=== PATIENT | male | born 1945 | race Caucasian/White ===

== ENCOUNTER 2017-12-10 10:41 | Inpatient (IN) | payer MEDICARE, OTHER ==
[2017-12-10 12:19] LABS: BASO # 0.1 K/uL (0.0-0.2); BASO % 0.9 % (0.0-2.0); EOS # 0.1 K/uL (0.0-0.7); EOS % 0.7 % (0.0-4.0); HEMOGLOBIN 8.7 g/dL (12.0-18.0); LYMPH # 1.7 K/uL (1.0-4.3); LYMPH % 22.5 % (20.0-40.0); MEAN CELL VOLUME 89.2 fL (80.0-94.0); MEAN CORPUSCULAR HGB CONC 33.6 g/dL (33.0-37.0); MEAN PLATELET VOLUME 7.6 fL (7.2-11.7); MONO # 0.8 K/uL (0.0-0.8); MONO % 10.8 % (0.0-10.0); NEUT % 65.1 % (50.0-75.0); RBC 2.9 Mil/uL (4.40-5.90); RED CELL DISTRIBUTION WIDTH 14.1 % (11.5-14.5); WHITE BLOOD COUNT 7.7 K/uL (4.8-10.8)
[2017-12-10 12:28] LABS: INR 1.2; PROTHROMBIN TIME 12.9 SECONDS (9.7-12.2)
[2017-12-10 12:33] LABS: ALB/GLOB RATIO 1.1 (1.0-2.1); ALBUMIN 3.3 g/dL (3.5-5.0); ALT/SGPT 30 U/L (21-72); AST/SGOT 24 U/L (17-59); BLOOD UREA NITROGEN 18 mg/dL (9-20); CALCIUM 7.9 mg/dl (8.6-10.4); GFR AFRICAN-AMERICAN > 60; GFR NON-AFRICAN AMERICAN > 60; LIPASE 53 U/L (23-300)
[2017-12-10 12:40] LABS: SQUAMOUS EPITHIAL 1 /hpf (0-5); URINE BILIRUBIN NEGATIVE (NEGATIVE); URINE BLOOD NEGATIVE (NEGATIVE); URINE CLARITY Clear (Clear); URINE COLOR Yellow (YELLOW); URINE GLUCOSE (UA) NORMAL (Normal); URINE LEUKOCYTE ESTERASE NEG Leu/uL (Negative); URINE PROTEIN NEGATIVE (NEGATIVE); URINE UROBILINOGEN NORMAL mg/dL (0.2-1.0)
--- NOTE | 2017-12-10 13:00 | C.PDOC ---
History Of Present Illness 72 year old male presents to the ED for evaluation of painless rectal bleeding that started 2 days ago. Patient reports he had "spicy" [place] food Thursday night and think its the reason for his rectal bleeding. Patient reports noticing bloody stools since Thursday and has had similar bleeding in the past. Patient is also c/o generalized weakness and lightheadedness. Patient denies fever, chills, nausea, vomit, abdominal pain, back pain, CP, SOB. Chief Complaint (Nursing): GI Problem History Per: Patient History/Exam Limitations: no limitations Onset/Duration Of Symptoms: Days Current Symptoms Are (Timing): Still Present Associated Symptoms: Rectal Bleeding, Lightheadedness Modifying Factors: None Recent travel outside of the [place]: No Additional History Per: Patient Past Medical History Reviewed: Historical Data, Nursing Documentation, Vital Signs Vital Signs: Last Vital Signs Temp 97.3 F L 12/13/17 15:37 Pulse 84 12/13/17 16:00 Resp 18 12/13/17 15:37 BP 111/70 12/13/17 15:37 Pulse Ox 99 12/13/17 19:01 - Medical History PMH: No Chronic Diseases, HTN Denies: Chronic Kidney Disease Surgical History: No Surg Hx Family History: States: Unknown Family Hx - Social History Hx Alcohol Use: No Hx Substance Use: No - Immunization History Hx Tetanus Toxoid Vaccination: No Hx Influenza Vaccination: Yes Hx Pneumococcal Vaccination: Yes Review Of Systems Constitutional: Negative for: Fever, Chills Cardiovascular: Negative for: Chest Pain, Palpitations Respiratory: Negative for: Cough, Shortness of Breath Gastrointestinal: Positive for: Diarrhea, Melena. Negative for: Vomiting Genitourinary: Negative for: Dysuria Musculoskeletal: Negative for: Back Pain Skin: Negative for: Rash Neurological: Negative for: Weakness, Numbness Physical Exam - Physical Exam Appears: Non-toxic, No Acute Distress Skin: Normal Color, Warm, Dry Head: Atraumatic, Normacephalic Eye(s): bilateral: Normal Inspection, Conjunctiva Pale Nose: No Discharge Oral Mucosa: Moist Neck: Normal ROM, Supple Chest: Symmetrical Cardiovascular: Rhythm Regular, No Murmur Respiratory: Normal Breath Sounds, No Rales, No Rhonchi, No Wheezing Gastrointestinal/Abdominal: Bowel Sounds (active), Soft, No Tenderness, No Guarding, No Rebound Rectal: Maroon Stool, Other (Strongly guac positive ) Extremity: Normal ROM, No Tenderness, No Swelling Neurological/Psych: Oriented x3, Normal Motor, Normal Sensation Gait: Steady ED Course And Treatment - Laboratory Results Result Diagrams: 12/13/17 08:26 18 08:26 ECG: Interpreted By Me ECG Interpretation: No Acute Changes O2 Sat by Pulse Oximetry: 99 (On RA) Pulse Ox Interpretation: Normal Medical Decision Making Medical Decision Making: Impression: painless GI bleed Plan: * EKG * Labs * CXR * UA Pt to be admitted for GI bleed Disposition - Disposition Disposition: HOSPITALIZED Disposition Time: 19:03 Condition: FAIR - Clinical Impression Clinical Impression: Gastrointestinal hemorrhage - Scribe Statement The provider has reviewed the documentation as recorded by the Scribe Gabriel Gordon All medical record entries made by the Scribe were at my direction and personally dictated by me. I have reviewed the chart and agree that the record accurately reflects my personal performance of the history, physical exam, medical decision making, and the department course for this patient. I have also personally directed, reviewed, and agree with the discharge instructions and disposition.
--- NOTE | 2017-12-10 14:55 | RAD ---
PROCEDURE: CHEST RADIOGRAPH, 1 VIEW HISTORY: Abdominal pain COMPARISON: 01/20/2012 FINDINGS: LUNGS: Clear. PLEURA: No pneumothorax or pleural fluid seen. CARDIOVASCULAR: No radiographic findings to suggest acute or significant cardiovascular disease. OSSEOUS STRUCTURES: No significant abnormalities. VISUALIZED UPPER ABDOMEN: Normal. OTHER FINDINGS: None. IMPRESSION: No active disease. No acute/significant interval changes.
--- NOTE | 2017-12-10 16:36 | CP.PCM.CON ---
<Karla Galicia - Last Filed: 12/10/17 16:56> History of Present Illness - History of Present Illness History of Present Illness: PGY4 Initial GI Consult Mor Sierra is a 72M w/ hx of BPH who presents with BRBPR and melena. He states that his rectal bleeding started 4 days ago. He notes that the bleeding was abrupt and is not associated with abd pain. He denies any post prandial pain. Denies any hematemsis, coffee-ground emesis, nausea, or vomiting. Pt denies any previous episode of rectal bleeding. He had a colonoscopy performed by Dr. Su on 11/2015 which revealed diverticulosis and grade 2 internal hemorrhoids. He denies any current hemorrhoid pain or discomfort. Denies any constipation or straining. He his bloody BM with melena was today in the AM. He denies any NSAID or anticoagulation use. His hgb upon arrival was 8.7. His baseline hgb is ~ 14. PMHx: BPH, diverticulosis PSHx: none Social Hx: denies smoking, ETOH, or illicit drug use Family Hx: denies any hx of colon ca, or GI malignancies ROS: 12-point ROS conducted, neg other than above Past Patient History - Past Medical History & Family History Past Medical History?: Yes - Past Social History Smoking Status: Never Smoked - CARDIAC Hx Hypertension: Yes - PULMONARY Hx Respiratory Disorders: No - NEUROLOGICAL Hx Neurological Disorder: No - HEENT Hx HEENT Problems: Yes Hx Cataracts: Yes (BIOL) - RENAL Hx Chronic Kidney Disease: No - ENDOCRINE/METABOLIC Hx Endocrine Disorders: No - HEMATOLOGICAL/ONCOLOGICAL Hx Blood Disorders: Yes (VITAMIN D DEFICIENCY) - INTEGUMENTARY Hx Dermatological Problems: No - MUSCULOSKELETAL/RHEUMATOLOGICAL Hx Musculoskeletal Disorders: No - GASTROINTESTINAL Hx Gastrointestinal Disorders: Yes Other/Comment: RECTAL BLEEDING - GENITOURINARY/GYNECOLOGICAL Hx Genitourinary Disorders: Yes Hx Prostate Problems: Yes (BPH) - PSYCHIATRIC Hx Substance Use: No - SURGICAL HISTORY Hx Surgeries: Yes Hx Cataract Extraction: Yes (BIOL) Hx Herniorrhaphy: Yes (LEFT INGUINAL) Other/Comment: "TOE SX" - ANESTHESIA Hx Anesthesia: Yes Hx Anesthesia Reactions: No Hx Malignant Hyperthermia: No Meds Allergies/Adverse Reactions: Allergies Allergy/AdvReac Type Severity Reaction Status Date / Time No Known Allergies Allergy Verified 12/10/17 10:48 Physical Exam - Constitutional Appears: Well, No Acute Distress - Head Exam Head Exam: ATRAUMATIC, NORMOCEPHALIC - Eye Exam Eye Exam: Normal appearance - ENT Exam ENT Exam: Mucous Membranes Moist, Normal Exam - Neck Exam Neck exam: Positive for: Normal Inspection - Respiratory Exam Respiratory Exam: Clear to Auscultation Bilateral, NORMAL BREATHING PATTERN. absent: Rales, Rhonchi, Wheezes, Respiratory Distress - Cardiovascular Exam Cardiovascular Exam: REGULAR RHYTHM, +S1, +S2 - GI/Abdominal Exam GI & Abdominal Exam: Normal Bowel Sounds, Soft. absent: Distended, Firm, Guarding, Rebound, Rigid, Tenderness - Rectal Exam Rectal Exam: Black Stool, Bloody Stool - Extremities Exam Extremities exam: Negative for: joint swelling, pedal edema - Neurological Exam Neurological exam: Alert, Oriented x3 - Psychiatric Exam Psychiatric exam: Normal Affect, Normal Mood - Skin Skin Exam: Dry, Intact, Normal Color, Warm Results - Vital Signs Recent Vital Signs: Last Vital Signs Temp 98.0 F 12/10/17 14:37 Pulse 82 12/10/17 14:37 Resp 20 12/10/17 14:37 BP 103/61 12/10/17 14:37 Pulse Ox 99 12/10/17 14:37 - Labs Result Diagrams: 12/10/17 12:15 12/10/17 12:15 Labs: Laboratory Results - last 24 hr 12/10/17 12/10/17 12/10/17 12:15 12:15 12:15 WBC 7.7 RBC 2.90 L Hgb 8.7 L Hct 25.9 L MCV 89.2 MCH 30.0 MCHC 33.6 RDW 14.1 Plt Count 194 MPV 7.6 Neut % (Auto) 65.1 Lymph % (Auto) 22.5 [place] % (Auto) 10.8 H Eos % (Auto) 0.7 Baso % (Auto) 0.9 Neut # (Auto) 5.0 Lymph # (Auto) 1.7 [place] # (Auto) 0.8 Eos # (Auto) 0.1 Baso # (Auto) 0.1 PT 12.9 H INR 1.2 APTT 29 Sodium 140 Potassium 3.9 Chloride 107 Carbon Dioxide 23 Anion Gap 14 BUN 18 Creatinine 0.8 Est GFR ( Amer) > 60 Est GFR (Non-Af Amer) > 60 Random Glucose 107 Calcium 7.9 L Total Bilirubin 0.4 AST 24 ALT 30 Alkaline Phosphatase 58 Troponin I < 0.0120 Total Protein 6.5 Albumin 3.3 L Globulin 3.2 Albumin/Globulin Ratio 1.1 Lipase 53 Urine Color Urine Clarity Urine pH Ur Specific [place] Urine Protein Urine Glucose (UA) Urine Ketones Urine Blood Urine Nitrate Urine Bilirubin Urine Urobilinogen Ur Leukocyte Esterase Urine WBC (Auto) Urine RBC (Auto) Ur Squamous Epith Cells Stool Occult Blood 12/10/17 12/10/17 12:19 12:31 WBC RBC Hgb Hct MCV MCH MCHC RDW Plt Count MPV Neut % (Auto) Lymph % (Auto) [place] % (Auto) Eos % (Auto) Baso % (Auto) Neut # (Auto) Lymph # (Auto) [place] # (Auto) Eos # (Auto) Baso # (Auto) PT INR APTT Sodium Potassium Chloride Carbon Dioxide Anion Gap BUN Creatinine Est GFR ( Amer) Est GFR (Non-Af Amer) Random Glucose Calcium Total Bilirubin AST ALT Alkaline Phosphatase Troponin I Total Protein Albumin Globulin Albumin/Globulin Ratio Lipase Urine Color Yellow Urine Clarity Clear Urine pH 5.0 Ur Specific [place] 1.023 Urine Protein Negative Urine Glucose (UA) Normal Urine Ketones Negative Urine Blood Negative Urine Nitrate Negative Urine Bilirubin Negative Urine Urobilinogen Normal Ur Leukocyte Esterase Neg Urine WBC (Auto) 1 Urine RBC (Auto) < 1 Ur Squamous Epith Cells 1 Stool Occult Blood Positive H Assessment & Plan - Assessment and Plan (Free Text) Assessment: Mor Sierra is a 72M w/ hx of BPH and diverticulosis who presents to the ER with rectal bleeding Rectal bleeding, etiology likely diverticular vs PUD vs AVM Anemia hx of diverticulosis Plan: -etiology is likely diverticular which is often self limiting -continue to monitor -transfuse if hgb <8 or symptomatic -will give 1 unit PRBC now -maintain 2 large bore IV access -start Protonix 40mg IV BID -start clears -if pt continues to bleed, make NPO and will reeval -spoke with daughter and she is aware of plan will D/W Dr. Su <River Su Y - Last Filed: 12/10/17 17:02> Meds - Medications Medications: Current Medications Doxazosin Mesylate (Cardura) 4 mg PO DAILY NIKO Sodium Chloride (Sodium Chloride 0.9%) 1,000 mls @ 70 mls/hr IV .[id number] NIKO Stop: 12/11/17 21:19 Pantoprazole Sodium (Protonix Inj) 40 mg IVP BID NIKO Zolpidem Tartrate (Ambien) 5 mg PO HS PRN PRN Reason: Insomnia Results - Vital Signs Recent Vital Signs: Last Vital Signs Temp 98.3 F 12/10/17 16:47 Pulse 80 12/10/17 16:47 Resp 20 12/10/17 16:47 BP 107/69 12/10/17 16:47 Pulse Ox 96 12/10/17 16:47 - Labs Result Diagrams: 12/10/17 12:15 12/10/17 12:15 Labs: Laboratory Results - last 24 hr 12/10/17 12/10/17 12/10/17 12:15 12:15 12:15 WBC 7.7 RBC 2.90 L Hgb 8.7 L Hct 25.9 L MCV 89.2 MCH 30.0 MCHC 33.6 RDW 14.1 Plt Count 194 MPV 7.6 Neut % (Auto) 65.1 Lymph % (Auto) 22.5 [place] % (Auto) 10.8 H Eos % (Auto) 0.7 Baso % (Auto) 0.9 Neut # (Auto) 5.0 Lymph # (Auto) 1.7 [place] # (Auto) 0.8 Eos # (Auto) 0.1 Baso # (Auto) 0.1 PT 12.9 H INR 1.2 APTT 29 Sodium 140 Potassium 3.9 Chloride 107 Carbon Dioxide 23 Anion Gap 14 BUN 18 Creatinine 0.8 Est GFR ( Amer) > 60 Est GFR (Non-Af Amer) > 60 Random Glucose 107 Calcium 7.9 L Total Bilirubin 0.4 AST 24 ALT 30 Alkaline Phosphatase 58 Troponin I < 0.0120 Total Protein 6.5 Albumin 3.3 L Globulin 3.2 Albumin/Globulin Ratio 1.1 Lipase 53 Urine Color Urine Clarity Urine pH Ur Specific [place] Urine Protein Urine Glucose (UA) Urine Ketones Urine Blood Urine Nitrate Urine Bilirubin Urine Urobilinogen Ur Leukocyte Esterase Urine WBC (Auto) Urine RBC (Auto) Ur Squamous Epith Cells Stool Occult Blood 12/10/17 12/10/17 12:19 12:31 WBC RBC Hgb Hct MCV MCH MCHC RDW Plt Count MPV Neut % (Auto) Lymph % (Auto) [place] % (Auto) Eos % (Auto) Baso % (Auto) Neut # (Auto) Lymph # (Auto) [place] # (Auto) Eos # (Auto) Baso # (Auto) PT INR APTT Sodium Potassium Chloride Carbon Dioxide Anion Gap BUN Creatinine Est GFR ( Amer) Est GFR (Non-Af Amer) Random Glucose Calcium Total Bilirubin AST ALT Alkaline Phosphatase Troponin I Total Protein Albumin Globulin Albumin/Globulin Ratio Lipase Urine Color Yellow Urine Clarity Clear Urine pH 5.0 Ur Specific [place] 1.023 Urine Protein Negative Urine Glucose (UA) Normal Urine Ketones Negative Urine Blood Negative Urine Nitrate Negative Urine Bilirubin Negative Urine Urobilinogen Normal Ur Leukocyte Esterase Neg Urine WBC (Auto) 1 Urine RBC (Auto) < 1 Ur Squamous Epith Cells 1 Stool Occult Blood Positive H Attending/Attestation - Attestation I have personally seen and examined this patient.: Yes I have fully participated in the care of the patient.: Yes I have reviewed all pertinent clinical information: Yes Notes (Text): 12/10/17 16:57 I have seen and examined patient with GI fellow. Agree with above documentation with the following additions. In brief, this is a 72 year old male with history of BPH who presents to hospital with complaint of rectal bleeding. He describes sudden onset bleeding beginning 4 days ago with bowel movements. Prior to this he was in usual state of health. He has been having approximately 2 episodes of hematochezia per day without any associated abdominal pain, nausea, vomiting, fever/chills, weight loss. He denies unusual food consumption or medication changes. He had a colonoscopy in November 2015 which showed gunter diverticulosis and internal hemorrhoids. Review of vitals from today are normal. Additional physical examination: Abdomen: no palpable hepato/splenomegaly BPH Rectal bleeding - rectal exam performed today shows mixed dark and fresh red blood with normal sphincter tone and no palpable lesions - Liquid diet as tolerated - Suggest 1 U PRBC transfusion and continued monitoring of H/H - Obtain iron studies - Bleeding source likely diverticular given clinical scenario with prior endoscopic findings, will continue to monitor patient clinical course, currently no endoscopic evaluation required at this time, patient hemodynamically stable. He tentatively has an outpatient office appointment with me on thursday for follow up. Will continue to monitor clinical course.
--- NOTE | 2017-12-10 16:50 | CP.PCM.HP ---
Present on Admission - Present on Admission Any Indicators Present on Admission: No Past Patient History - Past Medical History & Family History Past Medical History?: Yes - Past Social History Smoking Status: Never Smoked - CARDIAC Hx Hypertension: Yes - PULMONARY Hx Respiratory Disorders: No - NEUROLOGICAL Hx Neurological Disorder: No - HEENT Hx HEENT Problems: Yes Hx Cataracts: Yes (BIOL) - RENAL Hx Chronic Kidney Disease: No - ENDOCRINE/METABOLIC Hx Endocrine Disorders: No - HEMATOLOGICAL/ONCOLOGICAL Hx Blood Disorders: Yes (VITAMIN D DEFICIENCY) - INTEGUMENTARY Hx Dermatological Problems: No - MUSCULOSKELETAL/RHEUMATOLOGICAL Hx Musculoskeletal Disorders: No - GASTROINTESTINAL Hx Gastrointestinal Disorders: Yes Other/Comment: RECTAL BLEEDING - GENITOURINARY/GYNECOLOGICAL Hx Genitourinary Disorders: Yes Hx Prostate Problems: Yes (BPH) - PSYCHIATRIC Hx Substance Use: No - SURGICAL HISTORY Hx Surgeries: Yes Hx Cataract Extraction: Yes (BIOL) Hx Herniorrhaphy: Yes (LEFT INGUINAL) Other/Comment: "TOE SX" - ANESTHESIA Hx Anesthesia: Yes Hx Anesthesia Reactions: No Hx Malignant Hyperthermia: No Meds Allergies/Adverse Reactions: Allergies Allergy/AdvReac Type Severity Reaction Status Date / Time No Known Allergies Allergy Verified 12/10/17 10:48 Physical Exam - Constitutional Appears: Well - Head Exam Head Exam: ATRAUMATIC, NORMAL INSPECTION, NORMOCEPHALIC - Eye Exam Eye Exam: EOMI, Normal appearance, PERRL Pupil Exam: NORMAL ACCOMODATION, PERRL - ENT Exam ENT Exam: Mucous Membranes Moist, Normal Exam - Neck Exam Neck exam: Positive for: Normal Inspection - Respiratory Exam Respiratory Exam: Decreased Breath Sounds - Cardiovascular Exam Cardiovascular Exam: REGULAR RHYTHM, +S1, +S2 - GI/Abdominal Exam GI & Abdominal Exam: Diminished Bowel Sounds, Soft - Rectal Exam Rectal Exam: Deferred Results - Vital Signs Recent Vital Signs: Last Vital Signs Temp 98.0 F 12/10/17 14:37 Pulse 82 12/10/17 14:37 Resp 20 12/10/17 14:37 BP 103/61 12/10/17 14:37 Pulse Ox 99 12/10/17 14:37 - Labs Result Diagrams: 12/10/17 12:15 12/10/17 12:15 Labs: Laboratory Results - last 24 hr 12/10/17 12/10/17 12/10/17 12:15 12:15 12:15 WBC 7.7 RBC 2.90 L Hgb 8.7 L Hct 25.9 L MCV 89.2 MCH 30.0 MCHC 33.6 RDW 14.1 Plt Count 194 MPV 7.6 Neut % (Auto) 65.1 Lymph % (Auto) 22.5 [place] % (Auto) 10.8 H Eos % (Auto) 0.7 Baso % (Auto) 0.9 Neut # (Auto) 5.0 Lymph # (Auto) 1.7 [place] # (Auto) 0.8 Eos # (Auto) 0.1 Baso # (Auto) 0.1 PT 12.9 H INR 1.2 APTT 29 Sodium 140 Potassium 3.9 Chloride 107 Carbon Dioxide 23 Anion Gap 14 BUN 18 Creatinine 0.8 Est GFR ( Amer) > 60 Est GFR (Non-Af Amer) > 60 Random Glucose 107 Calcium 7.9 L Total Bilirubin 0.4 AST 24 ALT 30 Alkaline Phosphatase 58 Troponin I < 0.0120 Total Protein 6.5 Albumin 3.3 L Globulin 3.2 Albumin/Globulin Ratio 1.1 Lipase 53 Urine Color Urine Clarity Urine pH Ur Specific [place] Urine Protein Urine Glucose (UA) Urine Ketones Urine Blood Urine Nitrate Urine Bilirubin Urine Urobilinogen Ur Leukocyte Esterase Urine WBC (Auto) Urine RBC (Auto) Ur Squamous Epith Cells Stool Occult Blood 12/10/17 12/10/17 12:19 12:31 WBC RBC Hgb Hct MCV MCH MCHC RDW Plt Count MPV Neut % (Auto) Lymph % (Auto) [place] % (Auto) Eos % (Auto) Baso % (Auto) Neut # (Auto) Lymph # (Auto) [place] # (Auto) Eos # (Auto) Baso # (Auto) PT INR APTT Sodium Potassium Chloride Carbon Dioxide Anion Gap BUN Creatinine Est GFR ( Amer) Est GFR (Non-Af Amer) Random Glucose Calcium Total Bilirubin AST ALT Alkaline Phosphatase Troponin I Total Protein Albumin Globulin Albumin/Globulin Ratio Lipase Urine Color Yellow Urine Clarity Clear Urine pH 5.0 Ur Specific [place] 1.023 Urine Protein Negative Urine Glucose (UA) Normal Urine Ketones Negative Urine Blood Negative Urine Nitrate Negative Urine Bilirubin Negative Urine Urobilinogen Normal Ur Leukocyte Esterase Neg Urine WBC (Auto) 1 Urine RBC (Auto) < 1 Ur Squamous Epith Cells 1 Stool Occult Blood Positive H Assessment & Plan - Assessment and Plan (Free Text) Plan: Patient with a history of BPH admitted with BRBPR or melena Status post GI Vital signs stable with a blood pressure of 103/61 Hemoglobin is 8.7/25.9 hematocrit CMP is okay CBC CMP tomorrow morning May be diverticular bleeding transfuse if hemoglobin goes below 8 Status post status post Protonix Venodyne boots We will hold Lovenox at this time Medication as ordered Continue IV Cipro
[2017-12-10] MEDS: Sodium Chloride 0.9% 1,000 ML IV SCH (17:26)
[2017-12-10 19:59] LABS: IRON 10 ug/dL (49-181)
[2017-12-10 20:12] LABS: % IRON SATURATION 4 (20-55); TOTAL IRON BINDING CAPACITY 276 ug/dL (250-450)
[2017-12-10] MEDS ORDERED: Pneumococcal 23-Valent Vaccine IM ONE (22:31)
[2017-12-10] MEDS: Ciprofloxacin 200mg/100ml D5W 100 ML IVPB SCH (23:00)
[2017-12-11] MEDS: Ciprofloxacin 200mg/100ml D5W 100 ML IVPB SCH ×3 (02:00→22:13)
[2017-12-11 07:55] LABS: EOS # 0.1 K/uL (0.0-0.7); HEMOGLOBIN 9.1 g/dL (12.0-18.0); MONO # 0.6 K/uL (0.0-0.8); NEUT # 3.9 K/uL (1.8-7.0); WHITE BLOOD COUNT 6.4 K/uL (4.8-10.8)
--- NOTE | 2017-12-11 08:00 | CP.PCM.PN ---
<Jessica Brown - Last Filed: 12/11/17 11:25> Subjective - Date & Time of Evaluation Date of Evaluation: 12/11/17 Time of Evaluation: 07:00 - Subjective Subjective: Gastroenterology Follow Up Note Patient was seen and examined at beside. Patient reports he has been having 3 bloody bowel movements since Thursday. He reports overnight he had 2 bloody bowel movements, the last one looked "black". Admits to fatigue and weakness. Denied any shortness of breath, chest pain, abdominal pain, n/v/d/c. He did not eat last night due to the fear of having a bowel movement. Objective - Vital Signs/Intake and Output Vital Signs (last 24 hours): Temp Pulse Resp BP Pulse Ox 98.3 F 85 18 100/64 96 12/11/17 07:40 12/11/17 07:40 12/11/17 07:40 12/11/17 07:40 12/11/17 07:40 Intake and Output: 12/11/17 12/11/17 06:59 18:59 Intake Total 1140 Output Total 300 Balance 840 - Medications Medications: Current Medications Doxazosin Mesylate (Cardura) 4 mg PO DAILY NIKO Ferrous Sulfate (Feosol) 325 mg PO TID NIKO Sodium Chloride (Sodium Chloride 0.9%) 1,000 mls @ 70 mls/hr IV .[id number] [facility] Stop: 12/11/17 21:19 Last Admin: 12/10/17 17:26 Dose: 70 mls/hr Ciprofloxacin (Cipro 200mg/100ml D5w) 100 mls @ 67 mls/hr IVPB Q12H NIKO PRN Reason: Protocol Last Admin: 12/11/17 02:00 Dose: 67 mls/hr Pantoprazole Sodium (Protonix Inj) 40 mg IVP BID NIKO Last Admin: 12/10/17 17:26 Dose: 40 mg Zolpidem Tartrate (Ambien) 5 mg PO HS PRN PRN Reason: Insomnia Last Admin: 12/10/17 23:06 Dose: 5 mg - Labs Labs: 12/10/17 12:15 12/10/17 12:15 PT 12.9 SECONDS (9.7-12.2) H 12/10/17 12:15 INR 1.2 12/10/17 12:15 APTT 29 SECONDS (21-34) 12/10/17 12:15 - Constitutional Appears: No Acute Distress - Head Exam Head Exam: NORMAL INSPECTION, NORMOCEPHALIC - Eye Exam Eye Exam: EOMI, Normal appearance, PERRL Pupil Exam: NORMAL ACCOMODATION - ENT Exam ENT Exam: Mucous Membranes Moist, Normal Exam - Respiratory Exam Respiratory Exam: Clear to Ausculation Bilateral, NORMAL BREATHING PATTERN - Cardiovascular Exam Cardiovascular Exam: REGULAR RHYTHM - GI/Abdominal Exam GI & Abdominal Exam: Soft, Normal Bowel Sounds. absent: Distended, Tenderness, Organomegaly - Rectal Exam Rectal Exam: Deferred - Extremities Exam Extremities Exam: Normal Inspection. absent: Pedal Edema, Tenderness - Neurological Exam Neurological Exam: Alert, Awake, Oriented x3 - Psychiatric Exam Psychiatric exam: Normal Affect, Normal Mood - Skin Skin Exam: Dry, Intact, Normal Color, Warm. absent: Pallor Assessment and Plan - Assessment and Plan (Free Text) Assessment: 72 year old Male with medical history of BPH and diverticulosis who presents to the ER with rectal bleeding. He had a colonoscopy in November 2015 which showed gunter diverticulosis and internal hemorrhoids. BPH Iron Deficiency Anemia Rectal bleeding Plan: - Patient reports 2 bloody, tarry bowel movements overnight - S/P 1 unit PRBC, hemoglobin did not respond appropriately - Transfuse as necessary, will need Iron supplementation - Patient is for upper endoscopy today. Pending clinical evaluation over the weekend, possible colonoscopy 12/14/17. - Will continue to monitor clinical course. Jessica Palacio Dr., DO, PGY-1 <Patsy Palacios - Last Filed: 12/11/17 22:04> Objective - Vital Signs/Intake and Output Vital Signs (last 24 hours): Temp Pulse Resp BP Pulse Ox 97.9 F 86 20 99/63 L 96 12/11/17 15:56 12/11/17 15:56 12/11/17 15:56 12/11/17 15:56 12/11/17 15:56 Intake and Output: 12/11/17 12/12/17 18:59 06:59 Intake Total 500 Balance 500 - Medications Medications: Current Medications Doxazosin Mesylate (Cardura) 4 mg PO DAILY [facility] Last Admin: 12/11/17 09:39 Dose: 4 mg Ferrous Sulfate (Feosol) 325 mg PO TID [facility] Last Admin: 12/11/17 09:39 Dose: 325 mg Ciprofloxacin (Cipro 200mg/100ml D5w) 100 mls @ 67 mls/hr IVPB Q12H NIKO PRN Reason: Protocol Last Admin: 12/11/17 11:45 Dose: 67 mls/hr Pantoprazole Sodium (Protonix Inj) 40 mg IVP BID [facility] Last Admin: 12/11/17 09:40 Dose: 40 mg Zolpidem Tartrate (Ambien) 5 mg PO HS PRN PRN Reason: Insomnia Last Admin: 12/10/17 23:06 Dose: 5 mg - Labs Labs: 12/11/17 19:35 12/10/17 12:15 PT 12.9 SECONDS (9.7-12.2) H 12/10/17 12:15 INR 1.2 12/10/17 12:15 APTT 29 SECONDS (21-34) 12/10/17 12:15 Attending/Attestation - Attestation I have personally seen and examined this patient.: Yes I have fully participated in the care of the patient.: Yes I have reviewed all pertinent clinical information, including history, physical exam and plan: Yes Notes (Text): 12/11/17 22:03 Patient seen with GI fellow. 72 year old Male with medical history of BPH and diverticulosis who presents to the ER with rectal bleeding. He had a colonoscopy in November 2015 which showed gunter diverticulosis and internal hemorrhoids. Patient reports 2 bloody, tarry bowel movements overnight with no response to blood transfusions. Urgent EGD today was unremarkable and H pylori biopsies taken. Will continue PPI and start clear liquid diet. Possible colonoscopy 12/14/17 if continues to bleed. Will continue to monitor clinical course.
[2017-12-11 08:03] LABS: BASO % 0.5 % (0.0-2.0); EOS % 1.1 % (0.0-4.0); LYMPH # 1.7 K/uL (1.0-4.3); LYMPH % 27.3 % (20.0-40.0); MEAN CORPUSCULAR HEMOGLOBIN 29.6 pg (27.0-31.0); MEAN CORPUSCULAR HGB CONC 34.2 g/dL (33.0-37.0); MEAN PLATELET VOLUME 7.5 fL (7.2-11.7); MONO % 9.7 % (0.0-10.0); NEUT % 61.4 % (50.0-75.0); RBC 3.07 Mil/uL (4.40-5.90); RED CELL DISTRIBUTION WIDTH 14.1 % (11.5-14.5)
[2017-12-11 08:09] LABS: MEAN CELL VOLUME 86.5 fL (80.0-94.0)
[2017-12-11] MEDS: Sodium Chloride 0.9% 1,000 ML IV SCH ×2 (09:53→11:48)
--- NOTE | 2017-12-11 10:27 | CP.PCM.PN ---
Subjective - Date & Time of Evaluation Date of Evaluation: 12/11/17 Time of Evaluation: 10:30 - Subjective Subjective: PGY-[address] Galicia Patient seen and examined with daughter at bedside. Patient reports to have another bloody bowel movement this morning around 6am. Patient complains of fatigue. Per daughter, this is patient's 3rd time being in the hospital for GI bleed, first time in [facility] over 10 years ago, and 2nd time earlier last year. Patient was told to have diverticulosis and no surgical intervention was required. Patient denies fever, chills, dizziness, headache, vision changes, shortness of breath, chest pain, nausea, or vomiting. Objective - Vital Signs/Intake and Output Vital Signs (last 24 hours): Temp Pulse Resp BP Pulse Ox 98.3 F 85 18 100/64 96 12/11/17 07:40 12/11/17 07:40 12/11/17 07:40 12/11/17 07:40 12/11/17 07:40 Intake and Output: 12/11/17 12/11/17 06:59 18:59 Intake Total 1140 Output Total 300 Balance 840 - Medications Medications: Current Medications Doxazosin Mesylate (Cardura) 4 mg PO DAILY [facility] Last Admin: 12/11/17 09:39 Dose: 4 mg Ferrous Sulfate (Feosol) 325 mg PO TID [facility] Last Admin: 12/11/17 09:39 Dose: 325 mg Sodium Chloride (Sodium Chloride 0.9%) 1,000 mls @ 70 mls/hr IV .[id number] [facility] Stop: 12/11/17 21:19 Last Admin: 12/11/17 09:53 Dose: Not Given Ciprofloxacin (Cipro 200mg/100ml D5w) 100 mls @ 67 mls/hr IVPB Q12H [facility] PRN Reason: Protocol Last Admin: 12/11/17 02:00 Dose: 67 mls/hr Pantoprazole Sodium (Protonix Inj) 40 mg IVP BID [facility] Last Admin: 12/11/17 09:40 Dose: 40 mg Zolpidem Tartrate (Ambien) 5 mg PO HS PRN PRN Reason: Insomnia Last Admin: 12/10/17 23:06 Dose: 5 mg - Labs Labs: 12/11/17 07:48 12/10/17 12:15 PT 12.9 SECONDS (9.7-12.2) H 12/10/17 12:15 INR 1.2 12/10/17 12:15 APTT 29 SECONDS (21-34) 12/10/17 12:15 - Constitutional Appears: Non-toxic, No Acute Distress - Head Exam Head Exam: ATRAUMATIC - Eye Exam Eye Exam: EOMI, Normal appearance, PERRL - ENT Exam ENT Exam: Mucous Membranes Moist - Neck Exam Neck Exam: Full ROM, Normal Inspection - Respiratory Exam Respiratory Exam: Clear to Ausculation Bilateral, NORMAL BREATHING PATTERN - Cardiovascular Exam Cardiovascular Exam: REGULAR RHYTHM, +S1, +S2. absent: Murmur - GI/Abdominal Exam GI & Abdominal Exam: Soft, Normal Bowel Sounds. absent: Tenderness - Extremities Exam Extremities Exam: Full ROM, Normal Capillary Refill, Normal Inspection. absent : Joint Swelling, Pedal Edema - Neurological Exam Neurological Exam: Alert, Awake, Oriented x3 - Psychiatric Exam Psychiatric exam: Normal Affect, Normal Mood - Skin Skin Exam: Dry, Warm Assessment and Plan - Assessment and Plan (Free Text) Assessment: GI bleed -S/P 1 unit PRBC -Hgb 9.7 this AM -Feosol 325mg po TID -GI consult, Dr. Su help appreciated -Upper endoscopy planned for this afternoon -Colonoscopy planned for Thursday BPH -continue Cardura 4mg po Prophylactic measures -Protonix -SCD
--- NOTE | 2017-12-11 13:43 | CP.PCM.PN ---
Subjective - Date & Time of Evaluation Date of Evaluation: 12/11/17 Time of Evaluation: 10:20 - Subjective Subjective: clinically same Objective - Vital Signs/Intake and Output Vital Signs (last 24 hours): Temp Pulse Resp BP Pulse Ox 98.3 F 83 18 100/64 96 12/11/17 07:40 12/11/17 10:00 12/11/17 07:40 12/11/17 07:40 12/11/17 07:40 Intake and Output: 12/11/17 12/11/17 06:59 18:59 Intake Total 1140 Output Total 300 Balance 840 - Medications Medications: Current Medications Doxazosin Mesylate (Cardura) 4 mg PO DAILY [facility] Last Admin: 12/11/17 09:39 Dose: 4 mg Ferrous Sulfate (Feosol) 325 mg PO TID [facility] Last Admin: 12/11/17 09:39 Dose: 325 mg Sodium Chloride (Sodium Chloride 0.9%) 1,000 mls @ 70 mls/hr IV .[id number] [facility] Stop: 12/11/17 21:19 Last Admin: 12/11/17 11:48 Dose: 70 mls/hr Ciprofloxacin (Cipro 200mg/100ml D5w) 100 mls @ 67 mls/hr IVPB Q12H [facility] PRN Reason: Protocol Last Admin: 12/11/17 11:45 Dose: 67 mls/hr Pantoprazole Sodium (Protonix Inj) 40 mg IVP BID [facility] Last Admin: 12/11/17 09:40 Dose: 40 mg Zolpidem Tartrate (Ambien) 5 mg PO HS PRN PRN Reason: Insomnia Last Admin: 12/10/17 23:06 Dose: 5 mg - Labs Labs: 12/11/17 07:48 12/10/17 12:15 PT 12.9 SECONDS (9.7-12.2) H 12/10/17 12:15 INR 1.2 12/10/17 12:15 APTT 29 SECONDS (21-34) 12/10/17 12:15 - Constitutional Appears: Well - Head Exam Head Exam: ATRAUMATIC, NORMAL INSPECTION, NORMOCEPHALIC - Eye Exam Eye Exam: EOMI, Normal appearance, PERRL Pupil Exam: NORMAL ACCOMODATION, PERRL - ENT Exam ENT Exam: Mucous Membranes Moist, Normal Exam - Neck Exam Neck Exam: Full ROM, Normal Inspection. absent: Lymphadenopathy - Respiratory Exam Respiratory Exam: Decreased Breath Sounds - Cardiovascular Exam Cardiovascular Exam: REGULAR RHYTHM, +S1, +S2 - GI/Abdominal Exam GI & Abdominal Exam: Soft, Diminished Bowel Sounds - Rectal Exam Rectal Exam: Deferred
[2017-12-11] MEDS ORDERED: Propofol 10 mg/ml Inj (20 ML) ONE (14:21)
[2017-12-11] MEDS ORDERED: ePHEDrine 50 mg/ml Inj ONE (14:21)
[2017-12-11] MEDS ORDERED: Phenylephrine 10 mg/ml Inj ONE (14:21)
[2017-12-11 19:40] LABS: HEMOGLOBIN 8.2 g/dL (12.0-18.0); MEAN CELL VOLUME 87.1 fL (80.0-94.0); MEAN CORPUSCULAR HEMOGLOBIN 29.3 pg (27.0-31.0); MEAN CORPUSCULAR HGB CONC 33.6 g/dL (33.0-37.0); MEAN PLATELET VOLUME 7.3 fL (7.2-11.7); RBC 2.81 Mil/uL (4.40-5.90); RED CELL DISTRIBUTION WIDTH 14.6 % (11.5-14.5); WHITE BLOOD COUNT 6.7 K/uL (4.8-10.8)
[2017-12-12] MEDS: Ciprofloxacin 200mg/100ml D5W 100 ML IVPB SCH ×2 (10:01→21:57)
[2017-12-12 11:43] LABS: BASO % 0.6 % (0.0-2.0); EOS % 0.6 % (0.0-4.0); HEMOGLOBIN 7.9 g/dL (12.0-18.0); LYMPH # 1.3 K/uL (1.0-4.3); LYMPH % 20.9 % (20.0-40.0); MEAN CELL VOLUME 87.5 fL (80.0-94.0); MEAN CORPUSCULAR HEMOGLOBIN 30.2 pg (27.0-31.0); MEAN CORPUSCULAR HGB CONC 34.5 g/dL (33.0-37.0); MEAN PLATELET VOLUME 7.3 fL (7.2-11.7); MONO # 0.6 K/uL (0.0-0.8); MONO % 9.2 % (0.0-10.0); NEUT # 4.2 K/uL (1.8-7.0); NEUT % 68.7 % (50.0-75.0); RBC 2.62 Mil/uL (4.40-5.90); RED CELL DISTRIBUTION WIDTH 14.4 % (11.5-14.5); WHITE BLOOD COUNT 6.1 K/uL (4.8-10.8)
[2017-12-12 12:07] LABS: ALBUMIN 2.8 g/dL (3.5-5.0); ALT/SGPT 27 U/L (21-72); AST/SGOT 23 U/L (17-59); BLOOD UREA NITROGEN 11 mg/dL (9-20); CALCIUM 7.7 mg/dl (8.6-10.4); GFR AFRICAN-AMERICAN > 60; GFR NON-AFRICAN AMERICAN > 60
--- NOTE | 2017-12-12 15:03 | CP.PCM.PN ---
Subjective - Date & Time of Evaluation Date of Evaluation: 12/12/17 Time of Evaluation: 12:00 - Subjective Subjective: clinically same Objective - Vital Signs/Intake and Output Vital Signs (last 24 hours): Temp Pulse Resp BP Pulse Ox 98.0 F 84 20 101/63 96 12/12/17 08:52 12/12/17 09:00 12/12/17 08:52 12/12/17 08:52 12/12/17 08:52 Intake and Output: 12/12/17 12/12/17 06:59 18:59 Intake Total 1140 Balance 1140 - Medications Medications: Current Medications Doxazosin Mesylate (Cardura) 4 mg PO DAILY [facility] Last Admin: 12/12/17 10:14 Dose: Not Given Ferrous Sulfate (Feosol) 325 mg PO TID [facility] Last Admin: 12/12/17 13:37 Dose: 325 mg Ciprofloxacin (Cipro 200mg/100ml D5w) 100 mls @ 67 mls/hr IVPB Q12H [facility] PRN Reason: Protocol Last Admin: 12/12/17 10:01 Dose: 67 mls/hr Pantoprazole Sodium (Protonix Inj) 40 mg IVP BID [facility] Last Admin: 12/12/17 10:05 Dose: 40 mg Zolpidem Tartrate (Ambien) 5 mg PO HS PRN PRN Reason: Insomnia Last Admin: 12/11/17 22:12 Dose: 5 mg - Labs Labs: 12/12/17 11:27 12/12/17 11:27 PT 12.9 SECONDS (9.7-12.2) H 12/10/17 12:15 INR 1.2 12/10/17 12:15 APTT 29 SECONDS (21-34) 12/10/17 12:15 - Constitutional Appears: Well - Head Exam Head Exam: ATRAUMATIC, NORMAL INSPECTION, NORMOCEPHALIC - Eye Exam Eye Exam: EOMI, Normal appearance, PERRL Pupil Exam: NORMAL ACCOMODATION, PERRL - ENT Exam ENT Exam: Mucous Membranes Moist, Normal Exam - Neck Exam Neck Exam: Full ROM, Normal Inspection. absent: Lymphadenopathy - Respiratory Exam Respiratory Exam: Decreased Breath Sounds - Cardiovascular Exam Cardiovascular Exam: REGULAR RHYTHM, +S1, +S2 - GI/Abdominal Exam GI & Abdominal Exam: Soft, Diminished Bowel Sounds - Rectal Exam Rectal Exam: Deferred
--- NOTE | 2017-12-12 15:49 | CP.PCM.PN ---
<Karla Galicia - Last Filed: 12/12/17 15:50> Subjective - Date & Time of Evaluation Date of Evaluation: 12/12/17 Time of Evaluation: 10:30 - Subjective Subjective: PGY4 GI Follow-up Pt seen and examined bedside reports BRBPR and melena overnight Denies any abd pain tolerating diet +Void ROS: 10 point ROS conducted, neg other than above Objective - Vital Signs/Intake and Output Vital Signs (last 24 hours): Temp Pulse Resp BP Pulse Ox 98.0 F 84 20 101/63 96 12/12/17 08:52 12/12/17 09:00 12/12/17 08:52 12/12/17 08:52 12/12/17 08:52 Intake and Output: 12/12/17 12/12/17 06:59 18:59 Intake Total 1140 Balance 1140 - Medications Medications: Current Medications Doxazosin Mesylate (Cardura) 4 mg PO DAILY [facility] Last Admin: 12/12/17 10:14 Dose: Not Given Ferrous Sulfate (Feosol) 325 mg PO TID [facility] Last Admin: 12/12/17 13:37 Dose: 325 mg Ciprofloxacin (Cipro 200mg/100ml D5w) 100 mls @ 67 mls/hr IVPB Q12H [facility] PRN Reason: Protocol Last Admin: 12/12/17 10:01 Dose: 67 mls/hr Pantoprazole Sodium (Protonix Inj) 40 mg IVP BID [facility] Last Admin: 12/12/17 10:05 Dose: 40 mg Polyethylene Glycol/Electrolytes (Golytely) 4,000 ml PO ONCE ONE Stop: 12/13/17 12:01 Zolpidem Tartrate (Ambien) 5 mg PO HS PRN PRN Reason: Insomnia Last Admin: 12/11/17 22:12 Dose: 5 mg - Labs Labs: 12/12/17 11:27 12/12/17 11:27 PT 12.9 SECONDS (9.7-12.2) H 12/10/17 12:15 INR 1.2 12/10/17 12:15 APTT 29 SECONDS (21-34) 12/10/17 12:15 - Constitutional Appears: Well, No Acute Distress - Head Exam Head Exam: ATRAUMATIC, NORMOCEPHALIC - Eye Exam Eye Exam: Normal appearance - ENT Exam ENT Exam: Mucous Membranes Moist, Normal Exam - Respiratory Exam Respiratory Exam: Clear to Ausculation Bilateral - Cardiovascular Exam Cardiovascular Exam: REGULAR RHYTHM, +S1, +S2 - GI/Abdominal Exam GI & Abdominal Exam: Soft, Normal Bowel Sounds. absent: Guarding, Rigid, Tenderness - Extremities Exam Extremities Exam: Normal Inspection. absent: Joint Swelling, Pedal Edema - Neurological Exam Neurological Exam: Alert, Awake, Oriented x3 - Psychiatric Exam Psychiatric exam: Normal Affect, Normal Mood - Skin Skin Exam: Dry, Intact, Normal Color, Warm Assessment and Plan - Assessment and Plan (Free Text) Assessment: 72 year old Male with medical history of BPH and diverticulosis who presents to the ER with rectal bleeding. He had a colonoscopy in November 2015 which showed gunter diverticulosis and internal hemorrhoids. s/p EGD POD1 mild gastritis, no evidence of bleeding BPH Iron Deficiency Anemia Rectal bleeding Plan: - Patient reports continued bloody, tarry bowel movements overnight - S/P 1 unit PRBC, hemoglobin did not respond appropriately -will give 1 unit of PRBC today - Transfuse as necessary, will need Iron supplementation - colonoscopy 12/14/17. -continue clears - prep tomorrow - Will continue to monitor clinical course. D/W Dr. Palacios <Patsy Palacios - Last Filed: 12/12/17 15:57> Objective - Vital Signs/Intake and Output Vital Signs (last 24 hours): Temp Pulse Resp BP Pulse Ox 98.0 F 84 20 101/63 96 12/12/17 08:52 12/12/17 09:00 12/12/17 08:52 12/12/17 08:52 12/12/17 08:52 Intake and Output: 12/12/17 12/12/17 06:59 18:59 Intake Total 1140 Balance 1140 - Medications Medications: Current Medications Doxazosin Mesylate (Cardura) 4 mg PO DAILY [facility] Last Admin: 12/12/17 10:14 Dose: Not Given Ferrous Sulfate (Feosol) 325 mg PO TID [facility] Last Admin: 12/12/17 13:37 Dose: 325 mg Ciprofloxacin (Cipro 200mg/100ml D5w) 100 mls @ 67 mls/hr IVPB Q12H [facility] PRN Reason: Protocol Last Admin: 12/12/17 10:01 Dose: 67 mls/hr Pantoprazole Sodium (Protonix Inj) 40 mg IVP BID [facility] Last Admin: 12/12/17 10:05 Dose: 40 mg Polyethylene Glycol/Electrolytes (Golytely) 4,000 ml PO ONCE ONE Stop: 12/13/17 12:01 Zolpidem Tartrate (Ambien) 5 mg PO HS PRN PRN Reason: Insomnia Last Admin: 12/11/17 22:12 Dose: 5 mg - Labs Labs: 12/12/17 11:27 12/12/17 11:27 PT 12.9 SECONDS (9.7-12.2) H 12/10/17 12:15 INR 1.2 12/10/17 12:15 APTT 29 SECONDS (21-34) 12/10/17 12:15 Attending/Attestation - Attestation I have personally seen and examined this patient.: Yes I have fully participated in the care of the patient.: Yes I have reviewed all pertinent clinical information, including history, physical exam and plan: Yes Notes (Text): 12/12/17 15:57 Patient seen with GI fellow. 72 year old Male with medical history of BPH and diverticulosis who presents to the ER with rectal bleeding. He had a colonoscopy in November 2015 which showed gunter diverticulosis and internal hemorrhoids. Patient reports 2 bloody, tarry bowel movements overnight with no response to blood transfusions. Urgent EGD yesterday was unremarkable and H pylori biopsies taken. Will continue PPI and start clear liquid diet. Possible colonoscopy 12/14/17 if continues to bleed. Will transfuse one unit PRBC. Discussed with the daughter. Will continue to monitor clinical course.
[2017-12-12 19:40] LABS: HEMOGLOBIN 7.9 g/dL (12.0-18.0); MEAN CORPUSCULAR HGB CONC 34.1 g/dL (33.0-37.0); MEAN PLATELET VOLUME 7.1 fL (7.2-11.7); RBC 2.64 Mil/uL (4.40-5.90); RED CELL DISTRIBUTION WIDTH 14.5 % (11.5-14.5); WHITE BLOOD COUNT 6.7 K/uL (4.8-10.8)
[2017-12-13 08:43] LABS: INR 1.2; PROTHROMBIN TIME 13.4 SECONDS (9.7-12.2)
[2017-12-13 08:46] LABS: BASO % 0.7 % (0.0-2.0); EOS # 0.1 K/uL (0.0-0.7); EOS % 1.2 % (0.0-4.0); HEMOGLOBIN 9.8 g/dL (12.0-18.0); LYMPH # 1.3 K/uL (1.0-4.3); LYMPH % 19.8 % (20.0-40.0); MEAN CELL VOLUME 87.1 fL (80.0-94.0); MEAN CORPUSCULAR HEMOGLOBIN 30.7 pg (27.0-31.0); MEAN CORPUSCULAR HGB CONC 35.2 g/dL (33.0-37.0); MEAN PLATELET VOLUME 7.1 fL (7.2-11.7); MONO # 0.6 K/uL (0.0-0.8); NEUT # 4.4 K/uL (1.8-7.0); NEUT % 68.3 % (50.0-75.0); RBC 3.19 Mil/uL (4.40-5.90); RED CELL DISTRIBUTION WIDTH 14.3 % (11.5-14.5); WHITE BLOOD COUNT 6.4 K/uL (4.8-10.8)
[2017-12-13 08:51] LABS: ALBUMIN 3.1 g/dL (3.5-5.0); ALT/SGPT 31 U/L (21-72); AST/SGOT 24 U/L (17-59); BLOOD UREA NITROGEN 10 mg/dL (9-20); CALCIUM 8.1 mg/dl (8.6-10.4); GFR AFRICAN-AMERICAN > 60; GFR NON-AFRICAN AMERICAN > 60
[2017-12-13] MEDS: Ciprofloxacin 200mg/100ml D5W 100 ML IVPB SCH ×2 (10:52→21:44)
[2017-12-13] MEDS ORDERED: Peg-Electrolyte Oral Soln 4L (Golytely) PO ONE (12:00)
--- NOTE | 2017-12-13 13:27 | CP.PCM.PN ---
<Karla Galicia - Last Filed: 12/13/17 13:28> Subjective - Date & Time of Evaluation Date of Evaluation: 12/13/17 Time of Evaluation: 12:10 - Subjective Subjective: PGY4 GI Follow-up Pt seen and examined bedside reports no BRBPR and melena overnight Denies any abd pain tolerating diet +Void ROS: 10 point ROS conducted, neg other than above Objective - Vital Signs/Intake and Output Vital Signs (last 24 hours): Temp Pulse Resp BP Pulse Ox 99.2 F 84 20 95/64 L 97 12/13/17 08:00 12/13/17 08:00 12/13/17 08:00 12/13/17 08:00 12/13/17 08:00 Intake and Output: 12/13/17 12/13/17 06:59 18:59 Intake Total 1050 Balance 1050 - Medications Medications: Current Medications Acetaminophen (Tylenol 325mg Tab) 650 mg PO STAT [facility] Stop: 12/13/17 13:27 Doxazosin Mesylate (Cardura) 4 mg PO DAILY [facility] Last Admin: 12/13/17 10:47 Dose: 4 mg Ferrous Sulfate (Feosol) 325 mg PO TID [facility] Last Admin: 12/13/17 10:47 Dose: 325 mg Ciprofloxacin (Cipro 200mg/100ml D5w) 100 mls @ 67 mls/hr IVPB Q12H [facility] PRN Reason: Protocol Last Admin: 12/13/17 10:52 Dose: 67 mls/hr Pantoprazole Sodium (Protonix Inj) 40 mg IVP BID [facility] Last Admin: 12/13/17 10:48 Dose: 40 mg Zolpidem Tartrate (Ambien) 5 mg PO HS PRN PRN Reason: Insomnia Last Admin: 12/12/17 21:57 Dose: 5 mg - Labs Labs: 12/13/17 08:26 12/13/17 08:26 PT 13.4 SECONDS (9.7-12.2) H 12/13/17 08:26 INR 1.2 12/13/17 08:26 APTT 29 SECONDS (21-34) 12/10/17 12:15 - Constitutional Appears: Well, No Acute Distress - Head Exam Head Exam: ATRAUMATIC, NORMOCEPHALIC - Eye Exam Eye Exam: Normal appearance - ENT Exam ENT Exam: Mucous Membranes Moist, Normal Exam - Respiratory Exam Respiratory Exam: Clear to Ausculation Bilateral, NORMAL BREATHING PATTERN. absent: Rales, Rhonchi, Wheezes, Respiratory Distress - Cardiovascular Exam Cardiovascular Exam: REGULAR RHYTHM, +S1, +S2 - GI/Abdominal Exam GI & Abdominal Exam: Soft, Normal Bowel Sounds. absent: Firm, Guarding, Rigid, Tenderness, Organomegaly - Extremities Exam Extremities Exam: absent: Joint Swelling, Pedal Edema - Neurological Exam Neurological Exam: Alert, Awake, Oriented x3 - Psychiatric Exam Psychiatric exam: Normal Affect, Normal Mood - Skin Skin Exam: Dry, Intact, Normal Color, Warm Assessment and Plan - Assessment and Plan (Free Text) Assessment: 72 year old Male with medical history of BPH and diverticulosis who presents to the ER with rectal bleeding. He had a colonoscopy in November 2015 which showed gunter diverticulosis and internal hemorrhoids. s/p EGD POD1 mild gastritis, no evidence of bleeding BPH Iron Deficiency Anemia Rectal bleeding Plan: - S/P 1 unit PRBC,hgb ~9 - Transfuse as necessary - colonoscopy 12/14/17. -continue clears - prep today - Will continue to monitor clinical course. D/W Dr. Palacios <Patsy Palacios - Last Filed: 12/13/17 17:03> Objective - Vital Signs/Intake and Output Vital Signs (last 24 hours): Temp Pulse Resp BP Pulse Ox 97.3 F L 80 18 111/70 97 12/13/17 15:37 12/13/17 15:37 12/13/17 15:37 12/13/17 15:37 12/13/17 15:37 Intake and Output: 12/13/17 12/13/17 06:59 18:59 Intake Total 1050 450 Balance 1050 450 - Medications Medications: Current Medications Doxazosin Mesylate (Cardura) 4 mg PO DAILY [facility] Last Admin: 12/13/17 10:47 Dose: 4 mg Ferrous Sulfate (Feosol) 325 mg PO TID [facility] Last Admin: 12/13/17 13:56 Dose: 325 mg Ciprofloxacin (Cipro 200mg/100ml D5w) 100 mls @ 67 mls/hr IVPB Q12H [facility] PRN Reason: Protocol Last Admin: 12/13/17 10:52 Dose: 67 mls/hr Pantoprazole Sodium (Protonix Inj) 40 mg IVP BID [facility] Last Admin: 12/13/17 10:48 Dose: 40 mg Zolpidem Tartrate (Ambien) 5 mg PO HS PRN PRN Reason: Insomnia Last Admin: 12/12/17 21:57 Dose: 5 mg - Labs Labs: 12/13/17 08:26 12/13/17 08:26 PT 13.4 SECONDS (9.7-12.2) H 12/13/17 08:26 INR 1.2 12/13/17 08:26 APTT 29 SECONDS (21-34) 12/10/17 12:15 Attending/Attestation - Attestation I have personally seen and examined this patient.: Yes I have fully participated in the care of the patient.: Yes I have reviewed all pertinent clinical information, including history, physical exam and plan: Yes Notes (Text): 12/13/17 16:55 Patient seen with GI fellow. 72 year old Male with medical history of BPH and diverticulosis who presents to the ER with rectal bleeding. He had a colonoscopy in November 2015 which showed gunter diverticulosis and internal hemorrhoids. Patient reports bloody, tarry bowel movements overnight with no response to blood transfusions. Urgent EGD was unremarkable and H pylori biopsies taken. Will continue PPI and start clear liquid diet. Scheduled colonoscopy 12/14/17. Discussed with the daughter. Will continue to monitor clinical course
[2017-12-13] MEDS ORDERED: Bisacodyl 5mg EC Tab PO ONE (13:45)
[2017-12-13] MEDS ORDERED: Potassium Chloride 20 mEq ER Tab PO STA (16:35)
--- NOTE | 2017-12-13 17:54 | CP.PCM.PN ---
Subjective - Date & Time of Evaluation Date of Evaluation: 12/13/17 Time of Evaluation: 11:00 - Subjective Subjective: clinically same Objective - Vital Signs/Intake and Output Vital Signs (last 24 hours): Temp Pulse Resp BP Pulse Ox 97.3 F L 80 18 111/70 97 12/13/17 15:37 12/13/17 15:37 12/13/17 15:37 12/13/17 15:37 12/13/17 15:37 Intake and Output: 12/13/17 12/13/17 06:59 18:59 Intake Total 1050 450 Balance 1050 450 - Medications Medications: Current Medications Doxazosin Mesylate (Cardura) 4 mg PO DAILY [facility] Last Admin: 12/13/17 10:47 Dose: 4 mg Ferrous Sulfate (Feosol) 325 mg PO TID [facility] Last Admin: 12/13/17 17:09 Dose: 325 mg Ciprofloxacin (Cipro 200mg/100ml D5w) 100 mls @ 67 mls/hr IVPB Q12H [facility] PRN Reason: Protocol Last Admin: 12/13/17 10:52 Dose: 67 mls/hr Pantoprazole Sodium (Protonix Inj) 40 mg IVP BID [facility] Last Admin: 12/13/17 17:09 Dose: 40 mg Zolpidem Tartrate (Ambien) 5 mg PO HS PRN PRN Reason: Insomnia Last Admin: 12/12/17 21:57 Dose: 5 mg - Labs Labs: 12/13/17 08:26 12/13/17 08:26 PT 13.4 SECONDS (9.7-12.2) H 12/13/17 08:26 INR 1.2 12/13/17 08:26 APTT 29 SECONDS (21-34) 12/10/17 12:15 - Constitutional Appears: Well - Head Exam Head Exam: ATRAUMATIC, NORMAL INSPECTION, NORMOCEPHALIC - Eye Exam Eye Exam: EOMI, Normal appearance, PERRL Pupil Exam: NORMAL ACCOMODATION, PERRL - ENT Exam ENT Exam: Mucous Membranes Moist, Normal Exam - Neck Exam Neck Exam: Full ROM, Normal Inspection. absent: Lymphadenopathy - Respiratory Exam Respiratory Exam: Decreased Breath Sounds - Cardiovascular Exam Cardiovascular Exam: REGULAR RHYTHM, +S1, +S2 - GI/Abdominal Exam GI & Abdominal Exam: Soft, Diminished Bowel Sounds - Rectal Exam Rectal Exam: Deferred
[2017-12-13 20:01] LABS: BASO # 0.1 K/uL (0.0-0.2); BASO % 0.5 % (0.0-2.0); EOS # 0.1 K/uL (0.0-0.7); EOS % 0.7 % (0.0-4.0); HEMOGLOBIN 10.8 g/dL (12.0-18.0); LYMPH % 20.8 % (20.0-40.0); MEAN CELL VOLUME 87.8 fL (80.0-94.0); MEAN CORPUSCULAR HEMOGLOBIN 29.8 pg (27.0-31.0); MONO # 0.9 K/uL (0.0-0.8); MONO % 9.1 % (0.0-10.0); NEUT # 6.7 K/uL (1.8-7.0); NEUT % 68.9 % (50.0-75.0); RBC 3.63 Mil/uL (4.40-5.90); RED CELL DISTRIBUTION WIDTH 14.1 % (11.5-14.5)
[2017-12-13 20:05] LABS: WHITE BLOOD COUNT 9.7 K/uL (4.8-10.8)
[2017-12-14] MEDS: Ciprofloxacin 200mg/100ml D5W 100 ML IVPB SCH ×2 (09:57→21:55)
[2017-12-14] MEDS ORDERED: Propofol 10 mg/ml Inj (20 ML) ONE (14:43)
[2017-12-14] MEDS ORDERED: Lidocaine Hydrochloride 5 ML INJ ONE (14:43)
[2017-12-14] MEDS ORDERED: Lactated Ringer's 500 ML IV ONE (14:45)
[2017-12-14 16:12] VITALS: RESP 20
--- NOTE | 2017-12-14 17:39 | CP.PCM.PN ---
Subjective - Date & Time of Evaluation Date of Evaluation: 12/14/17 Time of Evaluation: 12:40 - Subjective Subjective: clinically same Objective - Vital Signs/Intake and Output Vital Signs (last 24 hours): Temp Pulse Resp BP Pulse Ox 97.7 F 80 20 101/64 97 12/14/17 16:10 12/14/17 16:10 12/14/17 16:10 12/14/17 16:10 12/14/17 16:10 Intake and Output: 12/14/17 12/14/17 06:59 18:59 Intake Total 500 100 Balance 500 100 - Medications Medications: Current Medications Doxazosin Mesylate (Cardura) 4 mg PO DAILY [facility] Last Admin: 12/14/17 09:57 Dose: 4 mg Ferrous Sulfate (Feosol) 325 mg PO TID [facility] Last Admin: 12/14/17 17:29 Dose: 325 mg Ciprofloxacin (Cipro 200mg/100ml D5w) 100 mls @ 67 mls/hr IVPB Q12H [facility] PRN Reason: Protocol Last Admin: 12/14/17 09:57 Dose: 67 mls/hr Pantoprazole Sodium (Protonix Inj) 40 mg IVP BID [facility] Last Admin: 12/14/17 17:29 Dose: 40 mg Zolpidem Tartrate (Ambien) 5 mg PO HS PRN PRN Reason: Insomnia Last Admin: 12/13/17 21:44 Dose: 5 mg - Labs Labs: 12/13/17 19:51 12/13/17 08:26 PT 13.4 SECONDS (9.7-12.2) H 12/13/17 08:26 INR 1.2 12/13/17 08:26 APTT 29 SECONDS (21-34) 12/10/17 12:15 - Constitutional Appears: Well - Head Exam Head Exam: ATRAUMATIC, NORMAL INSPECTION, NORMOCEPHALIC - Eye Exam Eye Exam: EOMI, Normal appearance, PERRL Pupil Exam: NORMAL ACCOMODATION, PERRL - ENT Exam ENT Exam: Mucous Membranes Moist, Normal Exam - Neck Exam Neck Exam: Full ROM, Normal Inspection. absent: Lymphadenopathy - Respiratory Exam Respiratory Exam: Decreased Breath Sounds - Cardiovascular Exam Cardiovascular Exam: REGULAR RHYTHM, +S1, +S2 - GI/Abdominal Exam GI & Abdominal Exam: Soft, Diminished Bowel Sounds - Rectal Exam Rectal Exam: Deferred Assessment and Plan - Assessment and Plan (Free Text) Plan: Status post endoscopy Status post colonoscopy today Colonoscopy revealed pandiverticulosis No signs of active bleeding Discussed with Dr. Ochoa note No active GI bleeding today in the morning in stool Hemoglobin is stable 10.1 29.6 today CBC CMP tomorrow morning
[2017-12-14 20:07] LABS: HEMOGLOBIN 10.1 g/dL (12.0-18.0); MEAN CELL VOLUME 88.2 fL (80.0-94.0); MEAN CORPUSCULAR HEMOGLOBIN 30.2 pg (27.0-31.0); MEAN CORPUSCULAR HGB CONC 34.3 g/dL (33.0-37.0); MEAN PLATELET VOLUME 6.8 fL (7.2-11.7); RBC 3.36 Mil/uL (4.40-5.90); RED CELL DISTRIBUTION WIDTH 14.4 % (11.5-14.5); WHITE BLOOD COUNT 8.5 K/uL (4.8-10.8)
--- NOTE | 2017-12-15 07:15 | CP.PCM.PN ---
<Karla Galicia - Last Filed: 12/15/17 07:15> Subjective - Date & Time of Evaluation Date of Evaluation: 12/15/17 Time of Evaluation: 06:45 - Subjective Subjective: PGY4 GI Follow Up Pt seen and examined bedside Denies any abd pain denies any melena, BRBPR Tolerating diet ROS: 10 point ROS conducted, neg other than above Objective - Vital Signs/Intake and Output Vital Signs (last 24 hours): Temp Pulse Resp BP Pulse Ox 97.9 F 93 H 20 98/63 L 96 12/15/17 04:00 12/15/17 04:00 12/15/17 04:00 12/15/17 04:00 12/15/17 04:00 Intake and Output: 12/15/17 12/15/17 06:59 18:59 Intake Total 680 Output Total 100 Balance 580 - Medications Medications: Current Medications Doxazosin Mesylate (Cardura) 4 mg PO DAILY [facility] Last Admin: 12/14/17 09:57 Dose: 4 mg Ferrous Sulfate (Feosol) 325 mg PO TID [facility] Last Admin: 12/14/17 17:29 Dose: 325 mg Ciprofloxacin (Cipro 200mg/100ml D5w) 100 mls @ 67 mls/hr IVPB Q12H NIKO PRN Reason: Protocol Last Admin: 12/14/17 21:55 Dose: 67 mls/hr Pantoprazole Sodium (Protonix Inj) 40 mg IVP BID [facility] Last Admin: 12/14/17 17:29 Dose: 40 mg Zolpidem Tartrate (Ambien) 5 mg PO HS PRN PRN Reason: Insomnia Last Admin: 12/14/17 21:55 Dose: 5 mg - Labs Labs: 12/14/17 19:56 12/13/17 08:26 PT 13.4 SECONDS (9.7-12.2) H 12/13/17 08:26 INR 1.2 12/13/17 08:26 APTT 29 SECONDS (21-34) 12/10/17 12:15 - Constitutional Appears: Well, No Acute Distress - Head Exam Head Exam: ATRAUMATIC, NORMOCEPHALIC - Eye Exam Eye Exam: Normal appearance - ENT Exam ENT Exam: Mucous Membranes Moist - Respiratory Exam Respiratory Exam: Clear to Ausculation Bilateral, NORMAL BREATHING PATTERN. absent: Rales, Rhonchi, Wheezes, Respiratory Distress - Cardiovascular Exam Cardiovascular Exam: REGULAR RHYTHM, +S1, +S2 - GI/Abdominal Exam GI & Abdominal Exam: Soft, Normal Bowel Sounds. absent: Firm, Guarding, Rigid, Tenderness, Organomegaly - Extremities Exam Extremities Exam: absent: Joint Swelling, Pedal Edema - Neurological Exam Neurological Exam: Alert, Awake, Oriented x3 - Psychiatric Exam Psychiatric exam: Normal Affect, Normal Mood - Skin Skin Exam: Dry, Intact, Normal Color, Warm Assessment and Plan - Assessment and Plan (Free Text) Assessment: 72 year old Male with medical history of BPH and diverticulosis who presents to the ER with rectal bleeding. He had a colonoscopy in November 2015 which showed gunter diverticulosis and internal hemorrhoids. s/p EGD mild gastritis , no evidence of bleeding; s/p colonoscopy POD#1: extensive small and large diverticulosis of the entire colon (more severe in the sigmoid), + old melena; no obvious source of bleeding BPH Iron Deficiency Anemia Rectal bleeding likely diverticular; hgb stable, s/p 2 units PRBC Plan: Okay to d/c from GI Standpoint continue high fiber diet follow-up with Dr. Su as oupt in 1-2weeks Will likely a repeat colonoscopy as an oupt with 2 day prep to better visual for any other etiology, ie AVM -d/w case with pt's daughter -may need to consider surgery for recurrent diverticular bleed D/W Dr. Su <River Su - Last Filed: 12/15/17 09:21> Objective - Vital Signs/Intake and Output Vital Signs (last 24 hours): Temp Pulse Resp BP Pulse Ox 98.5 F 86 20 97/64 L 95 12/15/17 07:50 12/15/17 08:10 12/15/17 07:50 12/15/17 07:50 12/15/17 07:50 Intake and Output: 12/15/17 12/15/17 06:59 18:59 Intake Total 680 Output Total 100 Balance 580 - Medications Medications: Current Medications Doxazosin Mesylate (Cardura) 4 mg PO DAILY [facility] Last Admin: 12/15/17 09:03 Dose: Not Given Ferrous Sulfate (Feosol) 325 mg PO TID [facility] Last Admin: 12/15/17 09:02 Dose: 325 mg Zolpidem Tartrate (Ambien) 5 mg PO HS PRN PRN Reason: Insomnia Last Admin: 12/14/17 21:55 Dose: 5 mg - Labs Labs: 12/15/17 07:31 12/15/17 07:31 PT 13.4 SECONDS (9.7-12.2) H 12/13/17 08:26 INR 1.2 12/13/17 08:26 APTT 29 SECONDS (21-34) 12/10/17 12:15 Attending/Attestation - Attestation I have personally seen and examined this patient.: Yes I have fully participated in the care of the patient.: Yes I have reviewed all pertinent clinical information, including history, physical exam and plan: Yes Notes (Text): 12/15/17 09:18 I have seen and examined patient with GI fellow. No acute events overnight, he is seen sitting in bed eating breakfast, appears comfortable. He denies abdominal pain, nausea, vomiting, or recurrent bowel movements overnight. BPH Rectal bleeding - s/p colonoscopy yesterday showing extensive diverticulosis with old dried blood throughout colon, no active bleeding visualized - High fiber diet as tolerated - H/H stable, continue to monitor - Continue with iron supplementation, suggest use of concomitant stool softner therapy in order to avoid constipation - From GI standpoint, ok to discharge home with subsequent outpatient follow up. Patient would need repeat colonoscopy with more optimal bowel preparation along with outpatient surgical follow up. Will sign off case, please reconsult as necessary, thank you.
[2017-12-15 07:43] LABS: BASO % 0.3 % (0.0-2.0); EOS # 0.1 K/uL (0.0-0.7); EOS % 1.5 % (0.0-4.0); HEMOGLOBIN 9.5 g/dL (12.0-18.0); LYMPH # 1.4 K/uL (1.0-4.3); LYMPH % 20.1 % (20.0-40.0); MEAN CELL VOLUME 88.3 fL (80.0-94.0); MEAN CORPUSCULAR HEMOGLOBIN 30.1 pg (27.0-31.0); MEAN CORPUSCULAR HGB CONC 34.1 g/dL (33.0-37.0); MONO # 0.7 K/uL (0.0-0.8); MONO % 10.2 % (0.0-10.0); NEUT # 4.7 K/uL (1.8-7.0); NEUT % 67.9 % (50.0-75.0); RBC 3.17 Mil/uL (4.40-5.90); RED CELL DISTRIBUTION WIDTH 14.4 % (11.5-14.5); WHITE BLOOD COUNT 6.9 K/uL (4.8-10.8)
[2017-12-15 07:59] LABS: ALB/GLOB RATIO 1.1 (1.0-2.1); ALT/SGPT 28 U/L (21-72); AST/SGOT 24 U/L (17-59); BLOOD UREA NITROGEN 14 mg/dL (9-20); CALCIUM 8.1 mg/dl (8.6-10.4); GFR AFRICAN-AMERICAN > 60; GFR NON-AFRICAN AMERICAN > 60
[2017-12-15 08:18] VITALS: PULSE 86
[2017-12-15 08:40] VITALS: BP 97/64; TEMP 98.5; O2SAT 95
--- NOTE | 2017-12-15 15:42 | CP.PCM.PN ---
Subjective - Date & Time of Evaluation Date of Evaluation: 12/15/17 Time of Evaluation: 15:41 - Subjective Subjective: PT CLEARED FOR D/C HOME TODAY PER DR ZENDEJAS. PT HAS ALSO BEEN CLEARED BY GI AND WILL F/U WITH DR. SCHOFIELD IN THE OFFICE WITHIN 1 WEEK. REFILL RX GIVEN TO THE PT. DISCUSSED D/C PLAN AT LENGTH WITH PT AND . NO FURTHER ORDERS. D/C PLAN: - SEGUIMIENTO CON EL DR. BAINS EN LA OFICINA EN EL PLAZO DE 5-7 ARROYO. - SEGUIMIENTO CON EL DR. SCHOFIELD EN LA OFICINA DENTRO DE 1 SEMANA --- EL DISCUTIR REPETIR LA ENDOSCOPIA CON USTED [place]AY VISITA. -CONTINUAR LOS MEDICAMENTOS CASEROS ROXNAA HABITUALMENTE. -REVISE ADALBERTO DOCUMENTOS DE DESCARGA PARA OBTENER INFORMACIN SOBRE LA DIETA Y LAS OPCIONES ALIMENTICIAS SALUDABLES PARA ADALBERTO HEMORROIDES Y DIVERTICULOSIS. -SI TIENE ALGUNA OTRA PREGUNTA, PNGASE EN CONTACTO CON EL DR. ZENDEJAS. -FOLLOW UP WITH DR. BAINS IN THE OFFICE WITHIN 5-7 DAYS. -FOLLOW UP WITH DR. SCHOFIELD IN THE OFFICE WITHIN 1 WEEK---HE WILL DISCUSS REPEAT ENDOSCOPY WITH YOU DURING YOUR VISIT. -CONTINUE HOME MEDICATIONS USUAL. -REVIEW YOUR DISCHARGE PAPERS FOR INFORMATION REGARDING DIET AND HEALTHY FOOD CHOICES FOR YOUR HEMORRHOIDS AND DIVERTICULOSIS. -IF YOU HAVE ANY FURTHER QUESTIONS, CONTACT DR. ZENDEJAS. Objective - Vital Signs/Intake and Output Vital Signs (last 24 hours): Temp Pulse Resp BP Pulse Ox 98.5 F 86 20 97/64 L 95 12/15/17 07:50 12/15/17 08:10 12/15/17 07:50 12/15/17 07:50 12/15/17 07:50 Intake and Output: 12/15/17 12/15/17 06:59 18:59 Intake Total 680 Output Total 100 Balance 580 - Medications Medications: Current Medications Doxazosin Mesylate (Cardura) 4 mg PO DAILY [facility] Last Admin: 12/15/17 09:03 Dose: Not Given Ferrous Sulfate (Feosol) 325 mg PO TID [facility] Last Admin: 12/15/17 13:04 Dose: 325 mg Zolpidem Tartrate (Ambien) 5 mg PO HS PRN PRN Reason: Insomnia Last Admin: 12/14/17 21:55 Dose: 5 mg - Labs Labs: 12/15/17 07:31 12/15/17 07:31 PT 13.4 SECONDS (9.7-12.2) H 12/13/17 08:26 INR 1.2 12/13/17 08:26 APTT 29 SECONDS (21-34) 12/10/17 12:15
--- NOTE | 2017-12-15 15:55 | CP.PCM.PN ---
Subjective - Date & Time of Evaluation Date of Evaluation: 12/15/17 Time of Evaluation: 12:40 - Subjective Subjective: clinically same Objective - Vital Signs/Intake and Output Vital Signs (last 24 hours): Temp Pulse Resp BP Pulse Ox 98.5 F 86 20 97/64 L 95 12/15/17 07:50 12/15/17 08:10 12/15/17 07:50 12/15/17 07:50 12/15/17 07:50 Intake and Output: 12/15/17 12/15/17 06:59 18:59 Intake Total 680 Output Total 100 Balance 580 - Medications Medications: Current Medications Doxazosin Mesylate (Cardura) 4 mg PO DAILY [facility] Last Admin: 12/15/17 09:03 Dose: Not Given Ferrous Sulfate (Feosol) 325 mg PO TID [facility] Last Admin: 12/15/17 13:04 Dose: 325 mg Zolpidem Tartrate (Ambien) 5 mg PO HS PRN PRN Reason: Insomnia Last Admin: 12/14/17 21:55 Dose: 5 mg - Labs Labs: 12/15/17 07:31 12/15/17 07:31 PT 13.4 SECONDS (9.7-12.2) H 12/13/17 08:26 INR 1.2 12/13/17 08:26 APTT 29 SECONDS (21-34) 12/10/17 12:15 - Constitutional Appears: Well - Head Exam Head Exam: ATRAUMATIC, NORMAL INSPECTION, NORMOCEPHALIC - Eye Exam Eye Exam: EOMI, Normal appearance, PERRL Pupil Exam: NORMAL ACCOMODATION, PERRL - ENT Exam ENT Exam: Mucous Membranes Moist, Normal Exam - Neck Exam Neck Exam: Full ROM, Normal Inspection. absent: Lymphadenopathy - Respiratory Exam Respiratory Exam: Decreased Breath Sounds - Cardiovascular Exam Cardiovascular Exam: REGULAR RHYTHM, +S1, +S2 - GI/Abdominal Exam GI & Abdominal Exam: Soft, Diminished Bowel Sounds - Rectal Exam Rectal Exam: Deferred
--- NOTE | 2017-12-16 19:01 | CARD ---
APPROVED REPORT EKG Measurement Heart [id number] HI [id number] [id number] <Conclusion> Normal sinus rhythm Normal ECG
== END 2017-12-15 15:56 | disposition home or self-care (01) | DRG 379 ==
LOC: C.ER 10:41 → C.9E 13:39 → C.6T 14:24
PROVIDERS: ADMIT Internal Medicine Nephrology; ATTEND Internal Medicine Nephrology
PROC: 0DB98ZX Excision of Duodenum, Via Natural or Artificial Opening Endoscopic, Diagnostic (ICD-10-PCS; 2017-12-11)
PROC: 0DB68ZX Excision of Stomach, Via Natural or Artificial Opening Endoscopic, Diagnostic (ICD-10-PCS; 2017-12-11)
PROC: 0DJD8ZZ Inspection of Lower Intestinal Tract, Via Natural or Artificial Opening Endoscopic (ICD-10-PCS; principal; 2017-12-14 14:46)
DX: K57.31 Diverticulosis of large intestine without perforation or abscess with bleeding (principal); D50.9 Iron deficiency anemia, unspecified; K29.70 Gastritis, unspecified, without bleeding; K64.1 Second degree hemorrhoids; I10 Essential (primary) hypertension; N40.0 Benign prostatic hyperplasia without lower urinary tract symptoms

== ENCOUNTER 2019-01-25 22:19 | Observation (INO) | payer MEDICARE ==
[2019-01-25] MEDS ORDERED: Iohexol 240 (50 ml) PO ONE (22:48)
[2019-01-25] MEDS ORDERED: Sodium Chloride 0.9% 1,000 ML IV ONE (22:48)
--- NOTE | 2019-01-25 22:54 | C.PDOC ---
History Of Present Illness 73 year old male presents to the ED for evaluation of 2 episodes of rectal bleeding that started tonight. Patient denies fever, chills, CP, SOB, dizziness, headache, nausea, vomit, abdominal pain, weakness, numbness. Chief Complaint (Nursing): GI Problem History Per: Patient History/Exam Limitations: no limitations Onset/Duration Of Symptoms: Days Current Symptoms Are (Timing): Still Present Number Of Bleeding Episodes: Multiple: (2) Quality Of Discomfort: Unable To Describe Associated Symptoms: Rectal Bleeding Recent travel outside of the [place]: No Additional History Per: Patient Past Medical History Reviewed: Historical Data, Nursing Documentation, Vital Signs Vital Signs: Last Vital Signs Temp 97.8 F 01/25/19 22:24 Pulse 86 01/25/19 22:24 Resp 20 01/25/19 22:24 BP 134/76 01/25/19 22:24 Pulse Ox 96 01/25/19 22:24 Primary Care Provider: Basil Cifuentes - Medical History PMH: HTN Denies: Chronic Kidney Disease Surgical History: No Surg Hx - [facility] Procedures EXCISION OF DUODENUM, ENDO, DIAGN (12/10/17) EXCISION OF STOMACH, ENDO, DIAGN (12/10/17) INSPECTION OF LOWER INTESTINAL TRACT, ENDO (12/10/17) Family History: States: Unknown Family Hx - Social History Hx Alcohol Use: No Hx Substance Use: No - Immunization History Hx Tetanus Toxoid Vaccination: No Hx Influenza Vaccination: Yes Hx Pneumococcal Vaccination: Yes Review Of Systems Constitutional: Negative for: Fever, Chills Eyes: Negative for: Vision Change Cardiovascular: Negative for: Chest Pain, Palpitations Respiratory: Negative for: Shortness of Breath Gastrointestinal: Positive for: Melena. Negative for: Nausea, Vomiting, Abd ominal Pain Skin: Negative for: Rash Neurological: Negative for: Weakness, Numbness, Headache, Dizziness Physical Exam - Physical Exam Appears: Non-toxic, No Acute Distress Skin: Normal Color, Warm, Dry Head: Atraumatic, Normacephalic Eye(s): bilateral: Normal Inspection Oral Mucosa: Moist Neck: Normal ROM, Supple Chest: Symmetrical Cardiovascular: Rhythm Regular Respiratory: Normal Breath Sounds, No Rales, No Rhonchi, No Wheezing Gastrointestinal/Abdominal: Soft, No Tenderness, No Guarding, No Rebound Rectal: Other (bright red blood) Extremity: Normal ROM, No Tenderness, No Swelling Neurological/Psych: Oriented x3, Normal Speech, Normal Cognition Gait: Steady ED Course And Treatment - Laboratory Results Result Diagrams: 01/25/19 23:01 01/25/19 23:01 O2 Sat by Pulse Oximetry: 96 (ON RA) Pulse Ox Interpretation: Normal - CT Scan/US CT abd/pelvis Other Rad Studies (CT/US): Read By Radiologist, Radiology Report Reviewed CT/US Interpretation: CT SCAN OF THE ABDOMEN AND PELVIS WITH CONTRAST. CLINICAL HISTORY: Abdominal pain. TECHNIQUE: Multiple axial and coronal CT images were obtained through the abdomen and pelvis after administration of intravenous and oral contrast material. COMMENTS: Bilateral basilar atelectatic pulmonary changes. Bilateral fat containing inguinal hernias without incarceration. Parts of the left lateral wall of the nonincarcerated bladder is noted in the left inguinal hernia. Diverticulosis. Minimal thickening of the proximal sigmoid colon suggestive of minimal diverticulitis/uncomplicated colitis. Mild constipation. Mild prostatomegaly. Mild diffuse spondylosis. The liver is of uniform attenuation without mass or defect. There is no intra or extrahepatic biliary ductal dilatation. The spleen is normal. The gallbladder is within normal limits. The pancreas is of normal contour and attenuation adriana acteristics. There is no evidence of adrenal mass. Both kidneys demonstrate prompt and equal nephrograms. The kidneys are normal in size, shape and configuration. There is no evidence of renal or ureteral mass. No renal or ureteral calculi are identified. There is no hydroureter or hydronephrosis. No evidence for appendicitis. No evidence for small or large bowel obstruction. There is no evidence of abdominal ascites or lymphadenopathy. There is no evidence of intrinsic or extrinsic bladder mass. There is no pelvic ascites or lymphadenopathy. Images of the lung bases show no evidence of pleural or parenchymal mass. There are no pleural effusions. The bony structures are free of lytic or blastic lesions. IMPRESSION: Bilateral basilar atelectatic pulmonary changes. Bilateral fat containing inguinal hernias without incarceration. Parts of the left lateral wall of the nonincarcerated bladder is noted in the left inguinal hernia. Diverticulosis. Minimal thickening of the proximal sigmoid colon suggestive of minimal diverticulitis/uncomplicated colitis. Mild constipation. Mild prostatomegaly. Mild diffuse spondylosis. Thank you for your kind referral of this patient. . Electronically signed on January 26, 2019 3:02:21 AM EDT by: Jewel Charlton M.D., Certified by ABR, MSK, Neuroradiology Medical Decision Making Medical Decision Making: Plan: * CT abd/pelvis * Labs * IV fluids Disposition Discussed With Dr.: Carmelo Rao Doctor Will See Patient In The: Hospital Counseled Patient/Family Regarding: Diagnosis - Disposition Disposition: HOSPITALIZED Disposition Time: 03:15 Condition: STABLE Forms: [facility] (Telugu) - POA Present On Arrival: None - Clinical Impression Clinical Impression: Rectal bleeding, Diverticulosis, Diverticulitis, Colitis - Scribe Statement The provider has reviewed the documentation as recorded by the Scribe Gabriel Gordon All medical record entries made by the Scribe were at my direction and personally dictated by me. I have reviewed the chart and agree that the record a ccurately reflects my personal performance of the history, physical exam, medical decision making, and the department course for this patient. I have also personally directed, reviewed, and agree with the discharge instructions and disposition.
[2019-01-25 23:07] LABS: BASO # 0.1 K/uL (0.0-0.2); BASO % 1.1 % (0.0-2.0); EOS # 0.1 K/uL (0.0-0.7); EOS % 1.1 % (0.0-4.0); HEMOGLOBIN 13.3 g/dL (12.0-18.0); LYMPH # 1.7 K/uL (1.0-4.3); MEAN CELL VOLUME 89.3 fL (80.0-94.0); MEAN CORPUSCULAR HEMOGLOBIN 30.7 pg (27.0-31.0); MEAN CORPUSCULAR HGB CONC 34.4 g/dL (33.0-37.0); MEAN PLATELET VOLUME 7.4 fL (7.2-11.7); MONO % 10.8 % (0.0-10.0); NEUT # 6.1 K/uL (1.8-7.0); RBC 4.33 Mil/uL (4.40-5.90); RED CELL DISTRIBUTION WIDTH 14.4 % (11.5-14.5); WHITE BLOOD COUNT 8.9 K/uL (4.8-10.8)
[2019-01-25 23:13] LABS: INR 1.2; PROTHROMBIN TIME 13.2 SECONDS (9.7-12.2)
[2019-01-25 23:17] LABS: ALB/GLOB RATIO 1.4 (1.0-2.1); ALBUMIN 4.3 g/dL (3.5-5.0); ALT/SGPT 28 U/L (21-72); AST/SGOT 29 U/L (17-59); BLOOD UREA NITROGEN 27 mg/dL (9-20); CALCIUM 8.7 mg/dl (8.6-10.4); GFR NON-AFRICAN AMERICAN 54; LIPASE 68 U/L (23-300)
[2019-01-25] MEDS ORDERED: Iohexol 240 (50 ml) ONE (23:38)
[2019-01-25] MEDS ORDERED: Sodium Chloride 0.9% 1,000 ML ONE (23:38)
[2019-01-25] MEDS ORDERED: Iodixanol 320 mg/ml 150 ml Bottle IV ONE (23:42)
--- NOTE | 2019-01-26 03:37 | CP.PCM.HP ---
<Jesus Salinas - Last Filed: 01/26/19 05:56> History of Present Illness - History of Present Illness History of Present Illness: H&P for Dr. Rao's service HPI: Patient is a 73 year old male who presents with daughter for episodes of bright red blood per rectum that started abruptly last night at 6pm. He denies any associated abdominal pain. He states he had a second and third episode of bright red blood per rectum while he was in the hospital. Daughter at bedside states he was concerned because he was admitted in November 2017 for similar symptoms and needed to be transfused at that time. He states that he believes that his rectal bleeding is related to his diet, he states he ate a meal of pork for lunch prior to onset of his symptoms. Of note, patient states he has been taking Meloxicam 15mg daily for right knee pain for the past 3 weeks daily with food. He denies any sensation of bloating or abdominal fullness recently, denies abdominal pain after meals. He denies nausea, vomiting, diarrhea, constipation. He states he has a normal nonbloody bowel movement the day before he came in to the ER. He states he felt feverish at home today as well. He denies changes in weight, decreased appetite, headaches, changes in vision or hearing, lightheadedness or dizziness, chest pain, palpitations, shortness of breath, cough, dysuria, hematuria, rash, easy bruising, sick contacts. He recently traveled to [facility] 1 month ago. He states he has had right knee pa in recently for which he has been taking Meloxicam 15mg with meals. PMH: BPH, diverticulitis PSH: left inguinal hernia repair, right tibial repair with metal in place Family hx: no history of NE, CVA or cancer in family Social hx: no history of tobacco use. 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 No illicit drug use. Currently lives by himself. Works in a warehouse. Full code No advance directive Health Care proxy: Daphne Cervantes daughter [phone] (not present at bedside) Present on Admission - Present on Admission Any Indicators Present on Admission: No Review of Systems - Constitutional Constitutional: Fever. absent: Chills, Headache, Night Sweats, Weight Gain, Weight Loss, Weakness - EENT Eyes: absent: Change in Vision Ears: absent: Decreased Hearing Nose/Mouth/Throat: absent: Nasal Congestion, Dysphagia, Odynophagia - Cardiovascular Cardiovascular: absent: Chest Pain, Dyspnea - Respiratory Respiratory: absent: Cough, Dyspnea - Gastrointestinal Gastrointestinal: Hematochezia. absent: Abdominal Pain, Nausea, Vomiting - Genitourinary Genitourinary: absent: Dysuria, Hematuria - Musculoskeletal Musculoskeletal: absent: Numbness, Tingling - Integumentary Integumentary: absent: Rash - Neurological Neurological: absent: Confusion, Syncope, Tingling, Tremor - Psychiatric Psychiatric: absent: Anxiety, Depression - Hematologic/Lymphatic Hematologic: absent: Easy Bleeding, Easy Bruising Past Patient History - Past Medical History & Family History Past Medical History?: Yes - Past Social History Smoking Status: Never Smoked - CARDIAC Hx Hypertension: Yes - PULMONARY Hx Respiratory Disorders: No - NEUROLOGICAL Hx Neurological Disorder: No - HEENT Hx HEENT Problems: Yes Hx Cataracts: Yes (BIOL) - RENAL Hx Chronic Kidney Disease: No - ENDOCRINE/METABOLIC Hx Endocrine Disorders: No - HEMATOLOGICAL/ONCOLOGICAL Hx Blood Disorders: Yes (VITAMIN D DEFICIENCY) - INTEGUMENTARY Hx Dermatological Problems: No - MUSCULOSKELETAL/RHEUMATOLOGICAL Hx Musculoskeletal Disorders: No - GASTROINTESTINAL Hx Gastrointestinal Disorders: Yes Other/Comment: RECTAL BLEEDING - GENITOURINARY/GYNECOLOGICAL Hx Genitourinary Disorders: Yes Hx Prostate Problems: Yes (BPH) - PSYCHIATRIC Hx Substance Use: No - SURGICAL HISTORY Hx Surgeries: Yes Hx Cataract Extraction: Yes (BIOL) Hx Herniorrhaphy: Yes (LEFT INGUINAL) Other/Comment: "TOE SX" - ANESTHESIA Hx Anesthesia: Yes Hx Anesthesia Reactions: No Hx Malignant Hyperthermia: No Meds Allergies/Adverse Reactions: Allergies Allergy/AdvReac Type Severity Reaction Status Date / Time No Known Allergies Allergy Verified 01/25/19 22:32 Physical Exam - Constitutional Appears: Well, Non-toxic, No Acute Distress - Head Exam Head Exam: ATRAUMATIC, NORMOCEPHALIC - Eye Exam Eye Exam: EOMI, PERRL. absent: Conjunctival injection, Nystagmus - ENT Exam ENT Exam: Mucous Membranes Moist, Normal Oropharynx - Neck Exam Neck exam: Positive for: Full Rom. Negative for: Tenderness - Respiratory Exam Respiratory Exam: Clear to Auscultation Bilateral, NORMAL BREATHING PATTERN. absent: Rhonchi, Wheezes, Respiratory Distress - Cardiovascular Exam Cardiovascular Exam: REGULAR RHYTHM, +S1, +S2. absent: Gallop, Rubs, Systolic Murmur - GI/Abdominal Exam GI & Abdominal Exam: Normal Bowel Sounds, Soft. absent: Distended, Firm, Hernia, Rigid, Tenderness - Rectal Exam Additional comments: External rectal exam: no active bleeding, no hemorrhoids externally, toilet paper placed by patient during last bowel movement has dried blood on it. - Extremities Exam Extremities exam: Positive for: pedal pulses present. Negative for: calf tenderness, pedal edema Additional comments: Scar on right tibia from surgery - Back Exam Back exam: absent: CVA tenderness (L), CVA tenderness (R), rash noted - Neurological Exam Neurological exam: Alert, Oriented x3 - Psychiatric Exam Psychiatric exam: Normal Affect, Normal Mood - Skin Skin Exam: Dry, Intact, Warm Results - Vital Signs Recent Vital Signs: Last Vital Signs Temp 97.8 F 01/25/19 22:24 Pulse 86 01/25/19 22:24 Resp 20 01/25/19 22:24 BP 134/76 01/25/19 22:24 Pulse Ox 96 01/26/19 03:16 - Labs Result Diagrams: 01/25/19 23:01 01/25/19 23:01 Labs: Laboratory Results - last 24 hr 01/25/19 01/25/19 01/25/19 22:50 23:01 23:01 WBC 8.9 RBC 4.33 L Hgb 13.3 D Hct 38.6 MCV 89.3 MCH 30.7 MCHC 34.4 RDW 14.4 Plt Count 230 MPV 7.4 Neut % (Auto) 68.0 Lymph % (Auto) 19.0 L [place] % (Auto) 10.8 H Eos % (Auto) 1.1 Baso % (Auto) 1.1 Neut # (Auto) 6.1 Lymph # (Auto) 1.7 [place] # (Auto) 1.0 H Eos # (Auto) 0.1 Baso # (Auto) 0.1 PT 13.2 H INR 1.2 APTT 36.0 H Sodium Potassium Chloride Carbon Dioxide Anion Gap BUN Creatinine Est GFR ( Amer) Est GFR (Non-Af Amer) Random Glucose Calcium Total Bilirubin AST ALT Alkaline Phosphatase Total Protein Albumin Globulin Albumin/Globulin Ratio Lipase Stool Occult Blood Positive H Blood Type Antibody Screen 01/25/19 01/25/19 23:01 23:01 WBC RBC Hgb Hct MCV MCH MCHC RDW Plt Count MPV Neut % (Auto) Lymph % (Auto) [place] % (Auto) Eos % (Auto) Baso % (Auto) Neut # (Auto) Lymph # (Auto) [place] # (Auto) Eos # (Auto) Baso # (Auto) PT INR APTT Sodium 144 Potassium 4.3 Chloride 108 H Carbon Dioxide 23 Anion Gap 18 BUN 27 H Creatinine 1.3 Est GFR ( Amer) > 60 Est GFR (Non-Af Amer) 54 Random Glucose 123 H D Calcium 8.7 Total Bilirubin 0.7 AST 29 ALT 28 Alkaline Phosphatase 92 Total Protein 7.4 Albumin 4.3 Globulin 3.1 Albumin/Globulin Ratio 1.4 Lipase 68 Stool Occult Blood Blood Type A POSITIVE Antibody Screen Negative Assessment & Plan - Assessment and Plan (Free Text) Assessment: 73 year old male with history of BPH and diverticulitis who presents for rectal bleeding. Plan: Lower GI bleeding Diverticulitis Afebrile White count 8.9 H/H 13.3/38.[address] abdomen/pelvis: Prelim reading: Bilateral basilar atelectatic pulmonary changes. Bilateral fat containing inguinal hernias without incarceration. Parts of the left lateral wall of the nonincarcerated bladder is noted in the left inguinal hernia. Diverticulosis. Minimal thickening of the proximal sigmoid colon suggestive of minimal diverticulitis/uncomplicated colitis. Mild constipation. Mild prostatomegaly. Mild diffuse spondylosis. Colonoscopy from November 2017: multiple small and large mouthed diverticula throughout entire colon. Grade II internal hemorrhoids GI Dr. Su consulted, help appreciated Keep NPO Protonix 40mg IV BID NS @ 100cc/hr IV Blood culture ordered Cipro 400mg Q12 Flagyl 500mg Q8 Avoid NSAIDS History of BPH On Doxazosin 4mg PO daily History of insomnia Ambien 5mg PO HS Prophylaxis Full code NPO DVT prophylaxis held for now, SCDs Protonix 40mg IV BID Case discussed with Dr. Maira Salinas, PGY1 <Carmelo Rao - Last Filed: 01/26/19 06:28> Results - Vital Signs Recent Vital Signs: Last Vital Signs Temp 97.8 F 01/26/19 04:04 Pulse 82 01/26/19 04:04 Resp 20 01/26/19 04:04 BP 123/79 01/26/19 04:04 Pulse Ox 97 01/26/19 04:04 - Labs Result Diagrams: 01/25/19 23:01 01/25/19 23:01 Labs: Laboratory Results - last 24 hr 01/25/19 01/25/19 01/25/19 22:50 23:01 23:01 WBC 8.9 RBC 4.33 L Hgb 13.3 D Hct 38.6 MCV 89.3 MCH 30.7 MCHC 34.4 RDW 14.4 Plt Count 230 MPV 7.4 Neut % (Auto) 68.0 Lymph % (Auto) 19.0 L [place] % (Auto) 10.8 H Eos % (Auto) 1.1 Baso % (Auto) 1.1 Neut # (Auto) 6.1 Lymph # (Auto) 1.7 [place] # (Auto) 1.0 H Eos # (Auto) 0.1 Baso # (Auto) 0.1 PT 13.2 H INR 1.2 APTT 36.0 H Sodium Potassium Chloride Carbon Dioxide Anion Gap BUN Creatinine Est GFR ( Amer) Est GFR (Non-Af Amer) Random Glucose Calcium Total Bilirubin AST ALT Alkaline Phosphatase Total Protein Albumin Globulin Albumin/Globulin Ratio Lipase Stool Occult Blood Positive H Blood Type Antibody Screen 01/25/19 01/25/19 23:01 23:01 WBC RBC Hgb Hct MCV MCH MCHC RDW Plt Count MPV Neut % (Auto) Lymph % (Auto) [place] % (Auto) Eos % (Auto) Baso % (Auto) Neut # (Auto) Lymph # (Auto) [place] # (Auto) Eos # (Auto) Baso # (Auto) PT INR APTT Sodium 144 Potassium 4.3 Chloride 108 H Carbon Dioxide 23 Anion Gap 18 BUN 27 H Creatinine 1.3 Est GFR ( Amer) > 60 Est GFR (Non-Af Amer) 54 Random Glucose 123 H D Calcium 8.7 Total Bilirubin 0.7 AST 29 ALT 28 Alkaline Phosphatase 92 Total Protein 7.4 Albumin 4.3 Globulin 3.1 Albumin/Globulin Ratio 1.4 Lipase 68 Stool Occult Blood Blood Type A POSITIVE Antibody Screen Negative Assessment & Plan - Date & Time Date: 01/26/19 (I have seen and examined the patient. I agree with the findings and plan of care as documented by Dr. Salinas. Patient with GI bleed. Diverticulitis on CT. Consult to GI. Monitor H/H. Derrick and ninoska. History of BPH. Continue home meds. Monitor for acute changes.) Time: 06:27 Attending/Attestation - Attestation I have personally seen and examined this patient.: Yes I have fully participated in the care of the patient.: Yes I have reviewed all pertinent clinical information: Yes
[2019-01-26 04:05] VITALS: RESP 20
[2019-01-26] MEDS: metroNIDAZOLE IV 500 mg/100 ml 500 MG/100 ML BAG IVPB SCH ×3 (05:50→21:00)
[2019-01-26] MEDS: Ciprofloxacin 400mg/200ml D5W 400 MG/200 ML BAG IVPB SCH ×2 (05:50→17:20)
[2019-01-26 06:18] LABS: BASO % 0.5 % (0.0-2.0); EOS # 0.1 K/uL (0.0-0.7); EOS % 1.9 % (0.0-4.0); HEMOGLOBIN 11.7 g/dL (12.0-18.0); LYMPH # 1.4 K/uL (1.0-4.3); LYMPH % 18.8 % (20.0-40.0); MEAN CELL VOLUME 89.3 fL (80.0-94.0); MEAN CORPUSCULAR HEMOGLOBIN 30.6 pg (27.0-31.0); MEAN CORPUSCULAR HGB CONC 34.2 g/dL (33.0-37.0); MEAN PLATELET VOLUME 7.5 fL (7.2-11.7); MONO # 0.8 K/uL (0.0-0.8); MONO % 11.2 % (0.0-10.0); NEUT # 5.1 K/uL (1.8-7.0); NEUT % 67.6 % (50.0-75.0); RBC 3.84 Mil/uL (4.40-5.90); RED CELL DISTRIBUTION WIDTH 13.8 % (11.5-14.5); WHITE BLOOD COUNT 7.5 K/uL (4.8-10.8)
[2019-01-26 06:29] LABS: IRON 60 ug/dL (49-181)
[2019-01-26 06:31] LABS: ALB/GLOB RATIO 1.2 (1.0-2.1); ALBUMIN 3.6 g/dL (3.5-5.0); ALT/SGPT 32 U/L (21-72); AST/SGOT 28 U/L (17-59); BLOOD UREA NITROGEN 25 mg/dL (9-20); CALCIUM 8.3 mg/dl (8.6-10.4); GFR NON-AFRICAN AMERICAN > 60
[2019-01-26 06:38] LABS: % IRON SATURATION 21 (20-55); TOTAL IRON BINDING CAPACITY 293 ug/dL (250-450)
[2019-01-26 07:07] LABS: FERRITIN 26.8 ng/mL
--- NOTE | 2019-01-26 09:04 | CP.PCM.CON ---
<Delma Padilla - Last Filed: 01/26/19 09:07> History of Present Illness - History of Present Illness History of Present Illness: GI Fellow PGY 5 Consult Note Mor Sierra is a 73M w/ hx of BPH, Diverticulosis who presents with rectal bleeding for two day. He states that his rectal bleeding started 2 days ago. He notes that the bleeding was abrupt and is not associated with abd pain. He had o ne episode at home and 2 in the hospital last night, no rectal bleeding this am. He denies any post prandial pain. Denies any hematemsis, coffee-ground emesis, nausea, or vomiting. Pt's previous episode of rectal bleeding was last year 11/2017 where he required blood transfusion. He had a colonoscopy performed by Dr. Su on 11/2017 which revealed diverticulosis, dried blood but no active bleeding, grade 2 internal hemorrhoids, poor prep and recommend a 3 month followup which patient has not done. He had an EGD as well at that time 11/2017, showing gastritis, path negative for celiac. He also had a CRC screening colonoscopy 11/2015 with similar findings and was told a 5yr followup. He denies any current hemorrhoid pain or discomfort. Denies any constipation or straining. He denies any NSAID or anticoagulation use. His Hgb upon arrival was 11.7. His baseline hgb is ~ 14. PMHx: BPH, diverticulosis PSHx: none Social Hx: denies smoking, ETOH, or illicit drug use Family Hx: denies any hx of colon ca, or GI malignancies ROS: 12-point ROS conducted, neg other than above Past Patient History - Past Medical History & Family History Past Medical History?: Yes - Past Social History Smoking Status: Never Smoked - CARDIAC Hx Hypertension: Yes - PULMONARY Hx Respiratory Disorders: No - NEUROLOGICAL Hx Neurological Disorder: No - HEENT Hx HEENT Problems: Yes Hx Cataracts: Yes (BIOL) - RENAL Hx Chronic Kidney Disease: No - ENDOCRINE/METABOLIC Hx Endocrine Disorders: No - HEMATOLOGICAL/ONCOLOGICAL Hx Blood Disorders: Yes (VITAMIN D DEFICIENCY) - INTEGUMENTARY Hx Dermatological Problems: No - MUSCULOSKELETAL/RHEUMATOLOGICAL Hx Musculoskeletal Disorders: No - GASTROINTESTINAL Hx Gastrointestinal Disorders: Yes Other/Comment: RECTAL BLEEDING - GENITOURINARY/GYNECOLOGICAL Hx Genitourinary Disorders: Yes Hx Prostate Problems: Yes (BPH) - PSYCHIATRIC Hx Substance Use: No - SURGICAL HISTORY Hx Surgeries: Yes Hx Cataract Extraction: Yes (BIOL) Hx Herniorrhaphy: Yes (LEFT INGUINAL) Other/Comment: "TOE SX" - ANESTHESIA Hx Anesthesia: Yes Hx Anesthesia Reactions: No Hx Malignant Hyperthermia: No Meds Allergies/Adverse Reactions: Allergies Allergy/AdvReac Type Severity Reaction Status Date / Time No Known Allergies Allergy Verified 01/25/19 22:32 - Medications Medications: Current Medications Doxazosin Mesylate (Cardura) 4 mg PO DAILY [facility] Ciprofloxacin (Cipro 400mg/200ml Dsw) 400 mg in 200 mls @ 133 mls/hr IVPB Q12H NIKO; Protocol Last Admin: 01/26/19 05:50 Dose: 133 mls/hr Metronidazole (Flagyl) 500 mg in 100 mls @ 100 mls/hr IVPB Q8H NIKO; Protocol Last Admin: 01/26/19 05:50 Dose: 100 mls/hr Pantoprazole Sodium (Protonix Inj) 40 mg IVP Q12H NIKO Last Admin: 01/26/19 05:53 Dose: 40 mg Zolpidem Tartrate (Ambien) 1 mg PO HS NIKO Physical Exam - Constitutional Appears: Non-toxic, No Acute Distress - Head Exam Head Exam: ATRAUMATIC, NORMAL INSPECTION, NORMOCEPHALIC - Eye Exam Eye Exam: EOMI, Normal appearance, PERRL - ENT Exam ENT Exam: Mucous Membranes Moist, Normal Exam - Neck Exam Neck exam: Positive for: Full Rom, Normal Inspection - Respiratory Exam Respiratory Exam: Clear to Auscultation Bilateral, NORMAL BREATHING PATTERN - Cardiovascular Exam Cardiovascular Exam: REGULAR RHYTHM, RRR, +S1, +S2 - GI/Abdominal Exam GI & Abdominal Exam: Normal Bowel Sounds, Soft. absent: Distended, Firm, Guarding, Organomegaly, Tenderness - Rectal Exam Rectal Exam: Hemorrhoids, NORMAL INSPECTION. absent: Black Stool, Bloody Stool Additional comments: Pt with no rectal blood on exam, had dried blood on toilet paper placed in rectum - Extremities Exam Extremities exam: Positive for: full ROM, normal inspection - Neurological Exam Neurological exam: Alert, Oriented x3 - Psychiatric Exam Psychiatric exam: Normal Affect, Normal Mood - Skin Skin Exam: Dry, Intact, Normal Color, Warm Results - Vital Signs Recent Vital Signs: Last Vital Signs Temp 97.5 F L 01/26/19 08:51 Pulse 79 01/26/19 08:51 Resp 20 01/26/19 08:51 BP 113/65 01/26/19 08:51 Pulse Ox 94 L 01/26/19 08:51 - Labs Result Diagrams: 01/26/19 06:12 01/26/19 06:12 Labs: Laboratory Results - last 24 hr 01/25/19 01/25/19 01/25/19 22:50 23:01 23:01 WBC 8.9 RBC 4.33 L Hgb 13.3 D Hct 38.6 MCV 89.3 MCH 30.7 MCHC 34.4 RDW 14.4 Plt Count 230 MPV 7.4 Neut % (Auto) 68.0 Lymph % (Auto) 19.0 L [place] % (Auto) 10.8 H Eos % (Auto) 1.1 Baso % (Auto) 1.1 Neut # (Auto) 6.1 Lymph # (Auto) 1.7 Ness # (Auto) 1.0 H Eos # (Auto) 0.1 Baso # (Auto) 0.1 Retic Count PT 13.2 H INR 1.2 APTT 36.0 H Sodium Potassium Chloride Carbon Dioxide Anion Gap BUN Creatinine Est GFR ( Amer) Est GFR (Non-Af Amer) Random Glucose Calcium Phosphorus Magnesium Iron TIBC % Saturation Ferritin Total Bilirubin AST ALT Alkaline Phosphatase Total Protein Albumin Globulin Albumin/Globulin Ratio Lipase Stool Occult Blood Positive H Blood Type Antibody Screen 01/25/19 01/25/19 01/26/19 23:01 23:01 06:12 WBC 7.5 RBC 3.84 L Hgb 11.7 L Hct 34.3 L MCV 89.3 MCH 30.6 MCHC 34.2 RDW 13.8 Plt Count 220 MPV 7.5 Neut % (Auto) 67.6 Lymph % (Auto) 18.8 L [place] % (Auto) 11.2 H Eos % (Auto) 1.9 Baso % (Auto) 0.5 Neut # (Auto) 5.1 Lymph # (Auto) 1.4 Ness # (Auto) 0.8 Eos # (Auto) 0.1 Baso # (Auto) 0.0 Retic Count PT INR APTT Sodium 144 Potassium 4.3 Chloride 108 H Carbon Dioxide 23 Anion Gap 18 BUN 27 H Creatinine 1.3 Est GFR ( Amer) > 60 Est GFR (Non-Af Amer) 54 Random Glucose 123 H D Calcium 8.7 Phosphorus Magnesium Iron TIBC % Saturation Ferritin Total Bilirubin 0.7 AST 29 ALT 28 Alkaline Phosphatase 92 Total Protein 7.4 Albumin 4.3 Globulin 3.1 Albumin/Globulin Ratio 1.4 Lipase 68 Stool Occult Blood Blood Type A POSITIVE Antibody Screen Negative 01/26/19 01/26/19 01/26/19 06:12 06:12 06:12 WBC RBC Hgb Hct MCV MCH MCHC RDW Plt Count MPV Neut % (Auto) Lymph % (Auto) Ness % (Auto) Eos % (Auto) Baso % (Auto) Neut # (Auto) Lymph # (Auto) Ness # (Auto) Eos # (Auto) Baso # (Auto) Retic Count 2.0 H PT INR APTT Sodium 142 Potassium 4.0 Chloride 108 H Carbon Dioxide 23 Anion Gap 15 BUN 25 H Creatinine 1.0 Est GFR ( Amer) > 60 Est GFR (Non-Af Amer) > 60 Random Glucose 117 H Calcium 8.3 L Phosphorus 3.1 Magnesium 2.0 Iron 60 TIBC 293 % Saturation 21 Ferritin 26.8 Total Bilirubin 0.3 AST 28 ALT 32 Alkaline Phosphatase 84 Total Protein 6.6 Albumin 3.6 Globulin 3.0 Albumin/Globulin Ratio 1.2 Lipase Stool Occult Blood Blood Type Antibody Screen Assessment & Plan - Assessment and Plan (Free Text) Assessment: Mor Sierra is a 73M w/ hx of BPH and diverticulosis who presents to the ER with rectal bleeding. 1. Rectal bleeding, etiology likely diverticular 2. Anemia 3. Hx of diverticulosis Plan: -Etiology is likely diverticular which is often self limiting -CT imaging reviewed, mild sigmoid thickening -Pt unlikely to have acute diverticulitis with no abdominal pain and rectal bleeding -No fever, WBC, no indication for abx at this time -Transfuse if hgb <8 or symptomatic, currently hemodynamically stable -PPI -Start clears liquid diet -No plan for endoscopic evaluation at this time -Pt needs a repeat colonoscopy with good prep, can followup outpatient -If pt continues to bleed, make NPO and will reeval -Spoke with daughter at bedside and she is aware of plan <River Su - Last Filed: 01/26/19 16:40> Meds - Medications Medications: Current Medications Acetaminophen (Tylenol 325mg Tab) 650 mg PO Q6 PRN PRN Reason: Pain, moderate (4-7) Doxazosin Mesylate (Cardura) 4 mg PO DAILY NIKO Last Admin: 01/26/19 10:32 Dose: 4 mg Ciprofloxacin (Cipro 400mg/200ml Dsw) 400 mg in 200 mls @ 133 mls/hr IVPB Q12H NIKO; Protocol Last Admin: 01/26/19 05:50 Dose: 133 mls/hr Metronidazole (Flagyl) 500 mg in 100 mls @ 100 mls/hr IVPB Q8H NIKO; Protocol Last Admin: 01/26/19 12:56 Dose: 100 mls/hr Pantoprazole Sodium (Protonix Inj) 40 mg IVP Q12H NIKO Last Admin: 01/26/19 05:53 Dose: 40 mg Zolpidem Tartrate (Ambien) 1 mg PO HS [facility] Results - Vital Signs Recent Vital Signs: Last Vital Signs Temp 97.5 F L 01/26/19 08:51 Pulse 79 01/26/19 08:51 Resp 20 01/26/19 08:51 BP 113/65 01/26/19 08:51 Pulse Ox 94 L 01/26/19 08:51 - Labs Result Diagrams: 01/26/19 06:12 01/26/19 06:12 Labs: Laboratory Results - last 24 hr 01/25/19 01/25/19 01/25/19 22:50 23:01 23:01 WBC 8.9 RBC 4.33 L Hgb 13.3 D Hct 38.6 MCV 89.3 MCH 30.7 MCHC 34.4 RDW 14.4 Plt Count 230 MPV 7.4 Neut % (Auto) 68.0 Lymph % (Auto) 19.0 L Ness % (Auto) 10.8 H Eos % (Auto) 1.1 Baso % (Auto) 1.1 Neut # (Auto) 6.1 Lymph # (Auto) 1.7 Ness # (Auto) 1.0 H Eos # (Auto) 0.1 Baso # (Auto) 0.1 Retic Count PT 13.2 H INR 1.2 APTT 36.0 H Sodium Potassium Chloride Carbon Dioxide Anion Gap BUN Creatinine Est GFR ( Amer) Est GFR (Non-Af Amer) Random Glucose Calcium Phosphorus Magnesium Iron TIBC % Saturation Ferritin Total Bilirubin AST ALT Alkaline Phosphatase Total Protein Albumin Globulin Albumin/Globulin Ratio Lipase Stool Occult Blood Positive H Blood Type Antibody Screen 01/25/19 01/25/19 01/26/19 23:01 23:01 06:12 WBC 7.5 RBC 3.84 L Hgb 11.7 L Hct 34.3 L MCV 89.3 MCH 30.6 MCHC 34.2 RDW 13.8 Plt Count 220 MPV 7.5 Neut % (Auto) 67.6 Lymph % (Auto) 18.8 L Ness % (Auto) 11.2 H Eos % (Auto) 1.9 Baso % (Auto) 0.5 Neut # (Auto) 5.1 Lymph # (Auto) 1.4 Ness # (Auto) 0.8 Eos # (Auto) 0.1 Baso # (Auto) 0.0 Retic Count PT INR APTT Sodium 144 Potassium 4.3 Chloride 108 H Carbon Dioxide 23 Anion Gap 18 BUN 27 H Creatinine 1.3 Est GFR ( Amer) > 60 Est GFR (Non-Af Amer) 54 Random Glucose 123 H D Calcium 8.7 Phosphorus Magnesium Iron TIBC % Saturation Ferritin Total Bilirubin 0.7 AST 29 ALT 28 Alkaline Phosphatase 92 Total Protein 7.4 Albumin 4.3 Globulin 3.1 Albumin/Globulin Ratio 1.4 Lipase 68 Stool Occult Blood Blood Type A POSITIVE Antibody Screen Negative 01/26/19 01/26/19 01/26/19 06:12 06:12 06:12 WBC RBC Hgb Hct MCV MCH MCHC RDW Plt Count MPV Neut % (Auto) Lymph % (Auto) Ness % (Auto) Eos % (Auto) Baso % (Auto) Neut # (Auto) Lymph # (Auto) Ness # (Auto) Eos # (Auto) Baso # (Auto) Retic Count 2.0 H PT INR APTT Sodium 142 Potassium 4.0 Chloride 108 H Carbon Dioxide 23 Anion Gap 15 BUN 25 H Creatinine 1.0 Est GFR ( Amer) > 60 Est GFR (Non-Af Amer) > 60 Random Glucose 117 H Calcium 8.3 L Phosphorus 3.1 Magnesium 2.0 Iron 60 TIBC 293 % Saturation 21 Ferritin 26.8 Total Bilirubin 0.3 AST 28 ALT 32 Alkaline Phosphatase 84 Total Protein 6.6 Albumin 3.6 Globulin 3.0 Albumin/Globulin Ratio 1.2 Lipase Stool Occult Blood Blood Type Antibody Screen Attending/Attestation - Attestation I have personally seen and examined this patient.: Yes I have fully participated in the care of the patient.: Yes I have reviewed all pertinent clinical information: Yes Notes (Text): 01/26/19 16:31 I have seen and examined patient with GI fellow. Agree with above documentation with the following additions. In brief, this is a 73 year old male with history of BPH, diverticulosis who presents to hospital with complaint of sudden onset rectal bleeding which began 2 days ago. Prior to this he was in usual state of health. He reports passing bright red blood per rectum at home and two episodes on arrival to hospital. No further bleeding episodes since yesterday. He denies associated abdominal pain, nausea, vomiting, fever/chills, weight loss, or change in bowel habits. He had a colonoscopy in November 2017 for similar complaints which was attributed to transient diverticular bleeding. Review of vitals from today are normal. BPH Rectal bleeding, painless - likely secondary to diverticular disease given clinical scenario - Clear liquid diet as tolerated - H/H stable, continue to monitor - CT imaging reviewed by me showing no gross colonic abnormalities - No plan for endoscopic intervention at this time, will continue to monitor patient clinical course
--- NOTE | 2019-01-26 09:40 | CP.PCM.PN ---
<Tristen Hough - Last Filed: 01/26/19 12:27> Subjective - Date & Time of Evaluation Date of Evaluation: 01/26/19 Time of Evaluation: 09:40 - Subjective Subjective: PGY-1 Medicine Progress Note for Dr. Mora Patient seen and examined at bedside this AM. No acute overnight events reported. Patient denies any new episodes of bloody stool this AM, no abdominal pain noted. Spoke to patient and daugther over phone about need for compliance with colonoscopy follow-up once discharged. Also spoke to patient about his daily use of meloxicam and risk of bleeding. He states he takes it nearly daily for 3 months because of R knee pain. Patient was encouraged to follow up with his PMD for alternate medication. Objective - Vital Signs/Intake and Output Vital Signs (last 24 hours): Temp Pulse Resp BP Pulse Ox 97.5 F L 79 20 113/65 94 L 01/26/19 08:51 01/26/19 08:51 01/26/19 08:51 01/26/19 08:51 01/26/19 08:51 - Medications Medications: Current Medications Doxazosin Mesylate (Cardura) 4 mg PO DAILY NIKO Ciprofloxacin (Cipro 400mg/200ml Dsw) 400 mg in 200 mls @ 133 mls/hr IVPB Q12H NIKO; Protocol Last Admin: 01/26/19 05:50 Dose: 133 mls/hr Metronidazole (Flagyl) 500 mg in 100 mls @ 100 mls/hr IVPB Q8H NIKO; Protocol Last Admin: 01/26/19 05:50 Dose: 100 mls/hr Pantoprazole Sodium (Protonix Inj) 40 mg IVP Q12H NIKO Last Admin: 01/26/19 05:53 Dose: 40 mg Zolpidem Tartrate (Ambien) 1 mg PO HS NIKO - Labs Labs: 01/26/19 06:12 01/26/19 06:12 PT 13.2 SECONDS (9.7-12.2) H 01/25/19 23:01 INR 1.2 01/25/19 23:01 APTT 36.0 SECONDS (21-34) H 01/25/19 23:01 - Constitutional Appears: Non-toxic, No Acute Distress - Head Exam Head Exam: ATRAUMATIC, NORMAL INSPECTION, NORMOCEPHALIC - Eye Exam Eye Exam: EOMI, Normal appearance Pupil Exam: NORMAL ACCOMODATION - ENT Exam ENT Exam: Mucous Membranes Moist, Normal Exam - Neck Exam Neck Exam: Full ROM, Normal Inspection - Respiratory Exam Respiratory Exam: Clear to Ausculation Bilateral, NORMAL BREATHING PATTERN. absent: Accessory Muscle Use, Rales, Rhonchi, Wheezes, Respiratory Distress, Stridor - Cardiovascular Exam Cardiovascular Exam: REGULAR RHYTHM, +S1, +S2 - GI/Abdominal Exam GI & Abdominal Exam: Soft, Normal Bowel Sounds. absent: Distended, Firm, Gu arding, Rigid, Tenderness, Rebound - Rectal Exam Rectal Exam: Hemorrhoids. absent: Bloody Stool - Extremities Exam Extremities Exam: Full ROM, Normal Capillary Refill, Normal Inspection - Back Exam Back Exam: NORMAL INSPECTION - Neurological Exam Neurological Exam: Alert, Awake, Oriented x3 - Skin Skin Exam: Dry, Intact, Normal Color, Warm Assessment and Plan - Assessment and Plan (Free Text) Assessment: 73 year old male with pmhx of BPH and diverticulosis presenting with acute onset, painless rectal bleeding. Plan: Lower GI bleed Hx of diverticulosis -etiology likely diverticular -patient afebrile, no leukocytosis -stool occult positive on admission -H/H currently stable -avoid NSAID use -CT abdomen/pelvis: Diverticulosis. Minimal thickening of the proximal sigmoid colon. Mild constipation. -Colonoscopy from November 2017: multiple small and large mouthed diverticula throughout entire colon. Grade II internal hemorrhoids GI recs (Dr. Su) appreciated -Etiology is likely diverticular which is often self limiting -Transfuse if hgb <8 or symptomatic, currently hemodynamically stable -PPI -Start clears liquid diet -No plan for endoscopic evaluation at this time -Pt needs a repeat colonoscopy with good prep, can followup outpatient -Cipro 400mg Q12 -Flagyl 500mg Q8 Hx of BPH -Doxazosin 4mg PO daily Hx of Insomnia -Ambien 5mg PO HS PPx, Diet, Disposition -DVT ppx: scds -GI ppx: protonix 40 mg IVP BID -Diet: liquid diet Case discussed with Dr. Abby Hough DO, PGY-1 <Douglas Mora H - Last Filed: 01/26/19 13:48> Objective - Vital Signs/Intake and Output Vital Signs (last 24 hours): Temp Pulse Resp BP Pulse Ox 97.5 F L 79 20 113/65 94 L 01/26/19 08:51 01/26/19 08:51 01/26/19 08:51 01/26/19 08:51 01/26/19 08:51 - Medications Medications: Current Medications Doxazosin Mesylate (Cardura) 4 mg PO DAILY NIKO Last Admin: 01/26/19 10:32 Dose: 4 mg Ciprofloxacin (Cipro 400mg/200ml Dsw) 400 mg in 200 mls @ 133 mls/hr IVPB Q12H NIKO; Protocol Last Admin: 01/26/19 05:50 Dose: 133 mls/hr Metronidazole (Flagyl) 500 mg in 100 mls @ 100 mls/hr IVPB Q8H NIKO; Protocol Last Admin: 01/26/19 12:56 Dose: 100 mls/hr Pantoprazole Sodium (Protonix Inj) 40 mg IVP Q12H NIKO Last Admin: 01/26/19 05:53 Dose: 40 mg Zolpidem Tartrate (Ambien) 1 mg PO HS NIKO - Labs Labs: 01/26/19 06:12 01/26/19 06:12 PT 13.2 SECONDS (9.7-12.2) H 01/25/19 23:01 INR 1.2 01/25/19 23:01 APTT 36.0 SECONDS (21-34) H 01/25/19 23:01 Attending/Attestation - Attestation I have personally seen and examined this patient.: Yes I have fully participated in the care of the patient.: Yes I have reviewed all pertinent clinical information, including history, physical exam and plan: Yes Notes (Text): Medical attending: Patient was seen and examined by me with the medical practice assistant. The patient was with two other family members at bedside. As mentioned previously he was taking for several weeks Meloxicam which we are now holding, the patient was taking this for ongoing knee pain. Hgb is 11 this morning. We will continue to montitor and if the Hgb remains stable possibly he could be discharged - however he would need to follow up with GI for a potential colonscopy Douglas Mora
--- NOTE | 2019-01-26 09:56 | CT ---
Date of service: 01/26/2019 PROCEDURE: CT Abdomen and Pelvis with contrast HISTORY: GI bleeding COMPARISON: Not available TECHNIQUE: Contrast dose: 100 mL Visipaque 320 Radiation dose: Total exam DLP = 972.04 mGy-cm. This CT exam was performed using one or more of the following dose reduction techniques: Automated exposure control, adjustment of the mA and/or kV according to patient size, and/or use of iterative reconstruction technique. FINDINGS: LOWER THORAX: No infiltrate/pleural effusion. Suspected eventration right hemidiaphragm. Less likely diaphragmatic hernia. LIVER: Normal size, contour and attenuation. No mass. No biliary ductal dilatation. GALLBLADDER AND BILE DUCTS: Unremarkable. PANCREAS: Unremarkable. No gross lesion or ductal dilatation. SPLEEN: There are several coarse dystrophic calcifications within the spleen of uncertain significance. More likely traumatic than granulomatous. ADRENALS: Unremarkable. No mass. KIDNEYS AND URETERS: Unremarkable. No hydronephrosis. No solid mass. VASCULATURE: Unremarkable. No aortic aneurysm. There is atherosclerotic calcification of the abdominal aorta. BOWEL: Diverticulosis of the transverse, descending and sigmoid colon without evidence of diverticulitis. No bowel obstruction. No other abnormal bowel loops. APPENDIX: Normal appendix. PERITONEUM: There is a left inguinal hernia containing mesenteric fat as well as a small portion of the left side of the urinary bladder. There is no herniated bowel. No ascites or pneumoperitoneum. LYMPH NODES: Unremarkable. No enlarged lymph nodes. BLADDER: As above, herniation of a small portion of the bladder into the left inguinal canal. REPRODUCTIVE: Normal prostate BONES: No acute fracture. OTHER FINDINGS: None. IMPRESSION: Left inguinal hernia containing mesenteric fat and a small portion of the urinary bladder. No herniated bowel. Probable right diaphragmatic eventration versus diaphragmatic hernia. Colonic diverticulosis without evidence of diverticulitis. Minor findings as above. The preliminary findings for this examination were reported by [facility] at time. There is discordance of this report with the preliminary findings. There is no evidence of acute diverticulitis at this time.
[2019-01-27 02:35] VITALS: O2SAT 95
[2019-01-27] MEDS: metroNIDAZOLE IV 500 mg/100 ml 500 MG/100 ML BAG IVPB SCH (03:45)
[2019-01-27] MEDS: Ciprofloxacin 400mg/200ml D5W 400 MG/200 ML BAG IVPB SCH (04:50)
[2019-01-27 07:40] VITALS: BP 122/74; PULSE 84; TEMP 98.4
--- NOTE | 2019-01-27 07:46 | CP.PCM.DIS ---
<Tristen Hough - Last Filed: 01/27/19 13:57> Provider - Provider Date of Admission: 01/26/19 03:16 Attending physician: Carmelo Rao MD Consults: 01/26/19 04:45 Physician Consult Routine Comment: Consulting Provider: River Su Consulting Physician: River Su Reason for Consult: GI bleed, diverticulitis Time Spent in preparation of Discharge (in minutes): 40 Diagnosis - Discharge Diagnosis (1) Diverticulosis Status: Acute (2) Rectal bleeding Status: Resolved Hospital Course - Lab Results Lab Results: Micro Results 01/26/19 06:12 Blood Blood Culture - Preliminary NO GROWTH AFTER 24 HOURS 01/26/19 06:12 Blood Blood Culture - Preliminary NO GROWTH AFTER 24 HOURS Most Recent Lab Values WBC 7.5 K/uL (4.8-10.8) 01/26/19 06:12 RBC 3.84 Mil/uL (4.40-5.90) L 01/26/19 06:12 Hgb 11.7 g/dL (12.0-18.0) L 01/26/19 06:12 Hct 34.3 % (35.0-51.0) L 01/26/19 06:12 MCV 89.3 fL (80.0-94.0) 01/26/19 06:12 MCH 30.6 pg (27.0-31.0) 01/26/19 06:12 MCHC 34.2 g/dL (33.0-37.0) 01/26/19 06:12 RDW 13.8 % (11.5-14.5) 01/26/19 06:12 Plt Count 220 K/uL (130-400) 01/26/19 06:12 MPV 7.5 fL (7.2-11.7) 01/26/19 06:12 Neut % (Auto) 67.6 % (50.0-75.0) 01/26/19 06:12 Lymph % (Auto) 18.8 % (20.0-40.0) L 01/26/19 06:12 Bartholomew % (Auto) 11.2 % (0.0-10.0) H 01/26/19 06:12 Eos % (Auto) 1.9 % (0.0-4.0) 01/26/19 06:12 Baso % (Auto) 0.5 % (0.0-2.0) 01/26/19 06:12 Neut # (Auto) 5.1 K/uL (1.8-7.0) 01/26/19 06:12 Lymph # (Auto) 1.4 K/uL (1.0-4.3) 01/26/19 06:12 Bartholomew # (Auto) 0.8 K/uL (0.0-0.8) 01/26/19 06:12 Eos # (Auto) 0.1 K/uL (0.0-0.7) 01/26/19 06:12 Baso # (Auto) 0.0 K/uL (0.0-0.2) 01/26/19 06:12 Retic Count 2.0 % (0.5-1.5) H 01/26/19 06:12 PT 13.2 SECONDS (9.7-12.2) H 01/25/19 23:01 INR 1.2 01/25/19 23:01 APTT 36.0 SECONDS (21-34) H 01/25/19 23:01 Sodium 142 mmol/L (132-148) 01/26/19 06:12 Potassium 4.0 mmol/L (3.6-5.2) 01/26/19 06:12 Chloride 108 mmol/L (98-107) H 01/26/19 06:12 Carbon Dioxide 23 mmol/L (22-30) 01/26/19 06:12 Anion Gap 15 (10-20) 01/26/19 06:12 BUN 25 mg/dL (9-20) H 01/26/19 06:12 Creatinine 1.0 mg/dL (0.8-1.5) 01/26/19 06:12 Est GFR ( Amer) > 60 01/26/19 06:12 Est GFR (Non-Af Amer) > 60 01/26/19 06:12 POC Glucose (mg/dL) 181 mg/dL (65-110) H 01/26/19 21:49 Random Glucose 117 mg/dL (75-110) H 01/26/19 06:12 Calcium 8.3 mg/dl (8.6-10.4) L 01/26/19 06:12 Phosphorus 3.1 mg/dL (2.5-4.5) 01/26/19 06:12 Magnesium 2.0 mg/dL (1.6-2.3) 01/26/19 06:12 Iron 60 ug/dL (49-181) 01/26/19 06:12 TIBC 293 ug/dL (250-450) 01/26/19 06:12 % Saturation 21 (20-55) 01/26/19 06:12 Ferritin 26.8 ng/mL 01/26/19 06:12 Total Bilirubin 0.3 mg/dL (0.2-1.3) 01/26/19 06:12 AST 28 U/L (17-59) 01/26/19 06:12 ALT 32 U/L (21-72) 01/26/19 06:12 Alkaline Phosphatase 84 U/L (38-126) 01/26/19 06:12 Total Protein 6.6 g/dL (6.3-8.3) 01/26/19 06:12 Albumin 3.6 g/dL (3.5-5.0) 01/26/19 06:12 Globulin 3.0 gm/dL (2.2-3.9) 01/26/19 06:12 Albumin/Globulin Ratio 1.2 (1.0-2.1) 01/26/19 06:12 Lipase 68 U/L (23-300) 01/25/19 23:01 Stool Occult Blood Positive (NEGATIVE) H 01/25/19 22:50 Blood Type A POSITIVE 01/25/19 23:01 Antibody Screen Negative 01/25/19 23:01 - Hospital Course Hospital Course: HPI: Patient is a 73 year old male who presents with daughter for episodes of bright red blood per rectum that started abruptly last night at 6pm. He denies any associated abdominal pain. He states he had a second and third episode of bright red blood per rectum while he was in the hospital. Daughter at bedside states he was concerned because he was admitted in November 2017 for similar symptoms and needed to be transfused at that time. He states that he believes that his rectal bleeding is related to his diet, he states he ate a meal of pork for lunch prior to onset of his symptoms. Of note, patient states he has been taking Meloxicam 15mg daily for right knee pain for the past 3 weeks daily with food. He denies any sensation of bloating or abdominal fullness recently, denies abdominal pain after meals. He denies nausea, vomiting, diarrhea, constipation. He states he has a normal nonbloody bowel movement the day before he came in to the ER. He states he felt feverish at home today as well. He denies changes in weight, decreased appetite, headaches, changes in vision or hearing, lightheadedness or dizziness, chest pain, palpitations, shortness of breath, cough, dysuria, hematuria, rash, easy bruising, sick contacts. He recently traveled to [facility] 1 month ago. He states he has had right knee pain recently for which he has been taking Meloxicam 15mg with meals. The following is a summary of hospital course. For full detail, please refer to EMR: Lower GI bleed Hx of diverticulosis -etiology likely diverticular -patient afebrile, no leukocytosis -stool occult positive on admission -H/H currently stable -avoid NSAID use -CT abdomen/pelvis: Diverticulosis. Minimal thickening of the proximal sigmoid colon. Mild constipation. -Colonoscopy from November 2017: multiple small and large mouthed diverticula throughout entire colon. Grade II internal hemorrhoids GI recs (Dr. Su) appreciated -Etiology is likely diverticular which is often self limiting -Transfuse if hgb <8 or symptomatic, currently hemodynamically stable -PPI -Start clears liquid diet -No plan for endoscopic evaluation at this time -Pt needs a repeat colonoscopy with good prep, can followup outpatient -Cipro 400mg Q12 -Flagyl 500mg Q8 Hx of BPH -Doxazosin 4mg PO daily Hx of Insomnia -Ambien 5mg PO HS PPx, Diet, Disposition -DVT ppx: scds -GI ppx: protonix 40 mg IVP BID -Diet: HHD On discharge: Patient is medically stable for discharge to home as per Dr. Mora. Patient is instructed to take medications as prescribed. Patient was instructed to refrain from daily use of meloxicam, as it can increase the risk of bleeding. Please follow up with your primary care provider (Dr. Cifuentes) about alternative treatment options for management of chronic knee pain. Patient underwent colonoscopy in 11/2017 and was instructed to follow up within 3 months for routine surveillance, which he failed to do. Patient has been instructed to follow up with Gastroenterology (Dr. Su) within 1 week of discharge for outpatient colonoscopy and continued monitoring. If symptoms worsen or persist, please return to ED immediately. - Date & Time of H&P Date of H&P: 01/27/19 Time of H&P: 13:57 Discharge Exam - Head Exam Head Exam: ATRAUMATIC, NORMAL INSPECTION, NORMOCEPHALIC - Eye Exam Eye Exam: EOMI, Normal appearance, PERRL Pupil Exam: NORMAL ACCOMODATION - ENT Exam ENT Exam: Mucous Membranes Moist, Normal Exam - Neck Exam Neck exam: Full Rom, Normal Inspection - Respiratory Exam Respiratory Exam: Clear to PA & Lateral, NORMAL BREATHING PATTERN, UNREMARKABLE. absent: Accessory Muscle Use, Rales, Rhonchi, Wheezes, Respiratory Distress, Stridor - Cardiovascular Exam Cardiovascular Exam: REGULAR RHYTHM, +S1, +S2 - GI/Abdominal Exam GI & Abdominal Exam: Normal Bowel Sounds, Soft, Unremarkable. absent: Distended, Firm, Guarding, Hernia, Rebound, Rigid, Tenderness - Extremities Exam Extremities exam: normal capillary refill, normal inspection, pedal pulses present - Back Exam Back exam: NORMAL INSPECTION - Neurological Exam Neurological exam: Alert, CN II-XII Intact, Normal Gait, Oriented x3 - Skin Skin Exam: Dry, Intact, Normal Color, Warm Discharge Plan - Discharge Medications Prescriptions: Famotidine [Pepcid] 20 mg PO BID #60 tab - Follow Up Plan Condition: STABLE Disposition: HOME/ ROUTINE Instructions: Diverticulosis (DC), Bloody Stools, Adult (DC), Famotidine, Colitis (DC), Diverticulitis (DC) Additional Instructions: Patient is medically stable for discharge to home as per Dr. Mora. Patient is instructed to take medications as prescribed. Patient was instructed to refrain from daily use of meloxicam, as it can increase the risk of bleeding. Please follow up with your primary care provider (Dr. Cifuentes) about alternative treatment options for management of chronic knee pain. Patient underwent colonoscopy in 11/2017 and was instructed to follow up within 3 months for routine surveillance, which he failed to do. Patient has been instr ucted to follow up with Gastroenterology (Dr. Su) within 1 week of discharge for outpatient colonoscopy and continued monitoring. If symptoms worsen or persist, please return to ED immediately. El paciente est mdicamente estable para el ovidio hospitalaria segn el Dr. Mora. Se instruye al paciente para que tome los medicamentos segn lo prescrito. El paciente recibi instrucciones de abstenerse del uso diario de meloxicam, ya que puede aumentar el riesgo de sangrado. Por favor, consulte con shaw proveedor de atencin primaria (Dr. Cifuentes) acerca de las opciones de tratamiento alte rnativo para el tratamiento del dolor crnico de rodilla. El paciente se someti a jessica colonoscopia en 11/2017 y recibi instrucciones de seguimiento dentro de los 3 meses para la vigilancia de rutina, lo que no hizo. Se le blanca indicado al paciente que realice un seguimiento con Gastroenterologa (Dr. Su) dentro de la primera semana despus del ovidio hospitalaria para la colonoscopia ambulatoria y la monitorizacin continua. Si los sntomas empeoran o persisten, regrese a la DE de inmediato. Referrals: River Su MD [Staff Provider] - <Douglas Mora - Last Filed: 01/27/19 15:20> Provider - Provider Date of Admission: 01/26/19 03:16 Attending physician: Carmelo Rao MD Consults: 01/26/19 04:45 Physician Consult Routine Comment: Consulting Provider: River Su Consulting Physician: River Su Y Reason for Consult: GI bleed, diverticulitis Hospital Course - Lab Results Lab Results: Micro Results 01/26/19 06:12 Blood Blood Culture - Preliminary NO GROWTH AFTER 24 HOURS 01/26/19 06:12 Blood Blood Culture - Preliminary NO GROWTH AFTER 24 HOURS Most Recent Lab Values WBC 7.5 K/uL (4.8-10.8) 01/27/19 07:55 RBC 3.89 Mil/uL (4.40-5.90) L 01/27/19 07:55 Hgb 11.9 g/dL (12.0-18.0) L 01/27/19 07:55 Hct 34.8 % (35.0-51.0) L 01/27/19 07:55 MCV 89.4 fL (80.0-94.0) 01/27/19 07:55 MCH 30.5 pg (27.0-31.0) 01/27/19 07:55 MCHC 34.2 g/dL (33.0-37.0) 01/27/19 07:55 RDW 13.9 % (11.5-14.5) 01/27/19 07:55 Plt Count 231 K/uL (130-400) 01/27/19 07:55 MPV 7.3 fL (7.2-11.7) 01/27/19 07:55 Neut % (Auto) 70.2 % (50.0-75.0) 01/27/19 07:55 Lymph % (Auto) 17.7 % (20.0-40.0) L 01/27/19 07:55 Bartholomew % (Auto) 9.9 % (0.0-10.0) 01/27/19 07:55 Eos % (Auto) 1.6 % (0.0-4.0) 01/27/19 07:55 Baso % (Auto) 0.6 % (0.0-2.0) 01/27/19 07:55 Neut # (Auto) 5.2 K/uL (1.8-7.0) 01/27/19 07:55 Lymph # (Auto) 1.3 K/uL (1.0-4.3) 01/27/19 07:55 Bartholomew # (Auto) 0.7 K/uL (0.0-0.8) 01/27/19 07:55 Eos # (Auto) 0.1 K/uL (0.0-0.7) 01/27/19 07:55 Baso # (Auto) 0.0 K/uL (0.0-0.2) 01/27/19 07:55 Retic Count 2.0 % (0.5-1.5) H 01/26/19 06:12 PT 13.2 SECONDS (9.7-12.2) H 01/25/19 23:01 INR 1.2 01/25/19 23:01 APTT 36.0 SECONDS (21-34) H 01/25/19 23:01 Sodium 140 mmol/L (132-148) 01/27/19 07:55 Potassium 3.8 mmol/L (3.6-5.2) 01/27/19 07:55 Chloride 107 mmol/L (98-107) 01/27/19 07:55 Carbon Dioxide 22 mmol/L (22-30) 01/27/19 07:55 Anion Gap 14 (10-20) 01/27/19 07:55 BUN 14 mg/dL (9-20) 01/27/19 07:55 Creatinine 0.8 mg/dL (0.8-1.5) 01/27/19 07:55 Est GFR ( Amer) > 60 01/27/19 07:55 Est GFR (Non-Af Amer) > 60 01/27/19 07:55 POC Glucose (mg/dL) 123 mg/dL (65-110) H 01/27/19 11:29 Random Glucose 126 mg/dL (75-110) H 01/27/19 07:55 Calcium 8.6 mg/dl (8.6-10.4) 01/27/19 07:55 Phosphorus 3.1 mg/dL (2.5-4.5) 01/26/19 06:12 Magnesium 2.0 mg/dL (1.6-2.3) 01/26/19 06:12 Iron 60 ug/dL (49-181) 01/26/19 06:12 TIBC 293 ug/dL (250-450) 01/26/19 06:12 % Saturation 21 (20-55) 01/26/19 06:12 Ferritin 26.8 ng/mL 01/26/19 06:12 Total Bilirubin 0.3 mg/dL (0.2-1.3) 01/26/19 06:12 AST 28 U/L (17-59) 01/26/19 06:12 ALT 32 U/L (21-72) 01/26/19 06:12 Alkaline Phosphatase 84 U/L (38-126) 01/26/19 06:12 Total Protein 6.6 g/dL (6.3-8.3) 01/26/19 06:12 Albumin 3.6 g/dL (3.5-5.0) 01/26/19 06:12 Globulin 3.0 gm/dL (2.2-3.9) 01/26/19 06:12 Albumin/Globulin Ratio 1.2 (1.0-2.1) 01/26/19 06:12 Lipase 68 U/L (23-300) 01/25/19 23:01 Stool Occult Blood Positive (NEGATIVE) H 01/25/19 22:50 Blood Type A POSITIVE 01/25/19 23:01 Antibody Screen Negative 01/25/19 23:01 Attending/Attestation - Attestation I have personally seen and examined this patient.: Yes I have fully participated in the care of the patient.: Yes I have reviewed all pertinent clinical information, including history, physical exam and plan: Yes Notes (Text): 01/27/19 15:02 Medical attending: Patient was seen and examined by me. Agree with the above note by the resident The patient was not in any distress, he is tolerating diet as well. The patient had family members present at bedside, he was ok with us discussing with them too. We used a car hostler to help us The patient's Hgb is now 11.9 As mentioned previously he had been taking meloxicam for quite some time for lower joint pains. The meloxicam is marketed to be a COX2 inhibitor - but actually it has both COX1 and COX2 activity but simply acts more on the COX2 receptor compared to COX1 He might benefit from a COX2 specific medication such as Celebrix however he should be following up with his primary phyisican to make that decision. Also with the help of the car hostler we emphasized to him that he should also follow up with GI for future potential colonoscopy Douglas Mora
[2019-01-27 08:05] LABS: BASO % 0.6 % (0.0-2.0); EOS # 0.1 K/uL (0.0-0.7); EOS % 1.6 % (0.0-4.0); HEMOGLOBIN 11.9 g/dL (12.0-18.0); LYMPH # 1.3 K/uL (1.0-4.3); LYMPH % 17.7 % (20.0-40.0); MEAN CELL VOLUME 89.4 fL (80.0-94.0); MEAN CORPUSCULAR HEMOGLOBIN 30.5 pg (27.0-31.0); MEAN CORPUSCULAR HGB CONC 34.2 g/dL (33.0-37.0); MEAN PLATELET VOLUME 7.3 fL (7.2-11.7); MONO # 0.7 K/uL (0.0-0.8); MONO % 9.9 % (0.0-10.0); NEUT # 5.2 K/uL (1.8-7.0); NEUT % 70.2 % (50.0-75.0); NRBC % 0.1 % (0.0-2.0); RBC 3.89 Mil/uL (4.40-5.90); RED CELL DISTRIBUTION WIDTH 13.9 % (11.5-14.5); WHITE BLOOD COUNT 7.5 K/uL (4.8-10.8)
[2019-01-27 08:40] LABS: BLOOD UREA NITROGEN 14 mg/dL (9-20); CALCIUM 8.6 mg/dl (8.6-10.4); GFR NON-AFRICAN AMERICAN > 60
--- NOTE | 2019-01-27 10:17 | CP.PCM.PN ---
<Delma Padilla - Last Filed: 01/27/19 10:11> Subjective - Date & Time of Evaluation Date of Evaluation: 01/27/19 Time of Evaluation: 07:00 - Subjective Subjective: GI Fellow PGY5 Progress Note Pt seen and evaluated at bedside, pt reports two BM last night and one with small amount of red blood and another BM this am with small amount of blood as well. Pt reports much improved from home. No abdominal pain. ROS: A 12pt ROS was negative except as above. Objective - Vital Signs/Intake and Output Vital Signs (last 24 hours): Temp Pulse Resp BP Pulse Ox 98.4 F 84 20 122/74 95 01/27/19 07:25 01/27/19 07:25 01/27/19 07:25 01/27/19 07:25 01/27/19 07:25 Intake and Output: 01/27/19 01/27/19 06:59 18:59 Output Total 200 Balance -200 - Medications Medications: Current Medications Acetaminophen (Tylenol 325mg Tab) 650 mg PO Q6 PRN PRN Reason: Pain, moderate (4-7) Last Admin: 01/26/19 16:34 Dose: 650 mg Doxazosin Mesylate (Cardura) 4 mg PO DAILY NIKO Last Admin: 01/27/19 09:06 Dose: 4 mg Ciprofloxacin (Cipro 400mg/200ml Dsw) 400 mg in 200 mls @ 133 mls/hr IVPB Q12H NIKO; Protocol Last Admin: 01/27/19 04:50 Dose: 133 mls/hr Metronidazole (Flagyl) 500 mg in 100 mls @ 100 mls/hr IVPB Q8H NIKO; Protocol Last Admin: 01/27/19 03:45 Dose: 100 mls/hr Pantoprazole Sodium (Protonix Inj) 40 mg IVP Q12H NIKO Last Admin: 01/26/19 17:20 Dose: 40 mg Zolpidem Tartrate (Ambien) 5 mg PO HS NIKO Last Admin: 01/26/19 21:59 Dose: 5 mg - Labs Labs: 01/27/19 07:55 01/27/19 07:55 PT 13.2 SECONDS (9.7-12.2) H 01/25/19 23:01 INR 1.2 01/25/19 23:01 APTT 36.0 SECONDS (21-34) H 01/25/19 23:01 - Constitutional Appears: Non-toxic, No Acute Distress - Head Exam Head Exam: ATRAUMATIC, NORMAL INSPECTION, NORMOCEPHALIC - Eye Exam Eye Exam: EOMI, Normal appearance, PERRL - ENT Exam ENT Exam: Mucous Membranes Moist - Neck Exam Neck Exam: Full ROM, Normal Inspection - Respiratory Exam Respiratory Exam: Clear to Ausculation Bilateral, NORMAL BREATHING PATTERN - Cardiovascular Exam Cardiovascular Exam: REGULAR RHYTHM, RRR, +S1, +S2 - GI/Abdominal Exam GI & Abdominal Exam: Soft, Normal Bowel Sounds. absent: Distended, Guarding, Tenderness, Organomegaly - Rectal Exam Rectal Exam: Deferred - Extremities Exam Extremities Exam: Full ROM, Normal Inspection - Neurological Exam Neurological Exam: Alert, Awake, Oriented x3 - Psychiatric Exam Psychiatric exam: Normal Affect, Normal Mood - Skin Skin Exam: Dry, Intact, Normal Color, Warm Assessment and Plan - Assessment and Plan (Free Text) Assessment: Mor Sierra is a 73M w/ hx of BPH and diverticulosis who presents to the ER with rectal bleeding. 1. Rectal bleeding, etiology likely diverticular 2. Anemia 3. Hx of diverticulosis Plan: -Etiology is likely diverticular which is often self limiting -CT imaging reviewed, mild sigmoid thickening -Pt unlikely to have acute diverticulitis with no abdominal pain and rectal bleeding -No fever, WBC, no indication for abx at this time -Transfuse if hgb <8 or symptomatic, currently hemodynamically stable -PPI -Advance diet as tolerated -Pt Hgb stable after two small bm with blood -No plan for endoscopic evaluation at this time -Pt needs a repeat colonoscopy with good prep, can followup outpatient <River Su - Last Filed: 01/27/19 11:43> Objective - Vital Signs/Intake and Output Vital Signs (last 24 hours): Temp Pulse Resp BP Pulse Ox 98.4 F 84 20 122/74 95 01/27/19 07:25 01/27/19 07:25 01/27/19 07:25 01/27/19 07:25 01/27/19 07:25 Intake and Output: 01/27/19 01/27/19 06:59 18:59 Output Total 200 Balance -200 - Medications Medications: Current Medications Acetaminophen (Tylenol 325mg Tab) 650 mg PO Q6 PRN PRN Reason: Pain, moderate (4-7) Last Admin: 01/26/19 16:34 Dose: 650 mg Doxazosin Mesylate (Cardura) 4 mg PO DAILY NIKO Last Admin: 01/27/19 09:06 Dose: 4 mg Ciprofloxacin (Cipro 400mg/200ml Dsw) 400 mg in 200 mls @ 133 mls/hr IVPB Q12H NIKO; Protocol Last Admin: 01/27/19 04:50 Dose: 133 mls/hr Metronidazole (Flagyl) 500 mg in 100 mls @ 100 mls/hr IVPB Q8H NIKO; Protocol Last Admin: 01/27/19 03:45 Dose: 100 mls/hr Pantoprazole Sodium (Protonix Inj) 40 mg IVP Q12H NIKO Last Admin: 01/26/19 17:20 Dose: 40 mg Zolpidem Tartrate (Ambien) 5 mg PO HS NIKO Last Admin: 01/26/19 21:59 Dose: 5 mg - Labs Labs: 01/27/19 07:55 01/27/19 07:55 PT 13.2 SECONDS (9.7-12.2) H 01/25/19 23:01 INR 1.2 01/25/19 23:01 APTT 36.0 SECONDS (21-34) H 01/25/19 23:01 Attending/Attestation - Attestation I have personally seen and examined this patient.: Yes I have fully participated in the care of the patient.: Yes I have reviewed all pertinent clinical information, including history, physical exam and plan: Yes Notes (Text): 01/27/19 11:41 I have seen and examined patient with GI fellow. No acute events overnight, he does endorse scant amount of rectal bleeding yesterday and early this morning. He otherwise denies abdominal pain, nausea, vomiting, fever/chills. Tolerating PO liquids without difficulty. Review of vitals from today are normal. BPH Rectal bleeding, likely secondary to diverticular disease given clinical scenario - Full liquid diet as tolerated - H/H stable, continue to monitor - If no recurrent bleeding noted, can likely discharage patient home with additional outpatient follow up - Will continue to monitor patient clinical course
== END 2019-01-27 12:52 | disposition home or self-care (01) ==
LOC: C.ER 22:19 → C.6T 01-26 03:16
PROVIDERS: ADMIT Family Medicine; ATTEND Family Medicine
DX: K57.31 Diverticulosis of large intestine without perforation or abscess with bleeding (principal); I10 Essential (primary) hypertension; D64.9 Anemia, unspecified; K59.00 Constipation, unspecified; K64.1 Second degree hemorrhoids; N40.0 Benign prostatic hyperplasia without lower urinary tract symptoms; K52.9 Noninfective gastroenteritis and colitis, unspecified; E55.9 Vitamin D deficiency, unspecified
CPT/HCPCS: 36415; 74177; 80048; 80053; 82728; 82948; 83540; 83550; 83690; 83735; 84100; 85025; 85044; 85610; 85730; 86850; 86900; 87040; 97116; 97161; 99285; C9113; G0328; G0378; G8978; G8979; G8980; J0744; J7030; Q9966; Q9967